=== PATIENT | male | born 1985 | race African-American/Black ===

== ENCOUNTER 2024-03-29 14:36 | Inpatient (IN) ==
[2024-03-29] MEDS: DECADRON TAB PO ONE (15:07)
[2024-03-29] MEDS: ZOFRAN TAB 4 MG PO ONE (15:08)
--- NOTE | 2024-03-29 15:15 | DR.ABDMALE ---
HPI Time seen Time Seen by Provider: 03/29/24 15:13 PCP Primary Care Physician: Dr. Katherine Dalton HPI comment HPI Comment: Patient was complaining of abdominal pain with a history of Crohn's. Patient states he feels like he has got a flareup Patient has had some nausea. This started last night. Denies any fever Complaint Chief Complaint:: pt states that he is having a crohns flare-up with N/V and abdominal pain that started last night Self Treatment fo Chief Complaint: phenergan- last dose today 0700 Mode of arrival Mode of Arrival: Ambulatory Timing Onset of Chief Complaint: 03/28/24 PMH PMH Past Medical History: Yes Past Medical History: Migraines Past Medical History Comment: Crohn's disease Past Surgical History: Yes Surgical History: Bowel Resection Family History History of Family Medical Conditions: Yes Family Medical History: Diabetes Mellitus and Hypertension Family Medical History Comment: crohn's disease Social History Does patient currently use any type of tobacco product: No Have you used tobacco products in the last 12 months: No Type of Tobacco Use: None Does any household member use tobacco: No Alcohol Use: None Do you use any recreational Drugs:: No Lives With: Family Lives Where: Home Infectious screening Have you traveled outside the country in the last 6 months?: No Isolation: Standard ROS Review of Systems Constitutional: No Symptoms Reported Eyes: No Symptoms Reported ENTM: No Symptoms Reported Respiratoy: No Symptoms Reported Cardiovascular: No Symptoms Reported Gastrointestinal/Abdominal: See HPI, Abdominal Pain, Nausea and Vomiting; negative Constipation or Diarrhea Genitourinary: No Symptoms Reported Neurological: No Symptoms Reported Musculoskeletal: No Symptoms Reported Integumentary: No Symptoms Reported Hematologic/Lymphatic: No Symptoms Reported Endocrine: No Symptoms Reported Psychiatric: No Symptoms Reported All Other Systems: Reviewed and Negative PE Vital Signs Vital Signs: Temp Pulse Resp BP Pulse Ox O2 Del Method 03/29/24 17:00 20 03/29/24 14:54 98.0 F 110 H 20 145/97 97 Room Air General Limitations: No Limitations General Appearance: Alert and In No Apparent Distress Head Head Exam: Normal Inspection Eyes Eye exam: Normal Appearance ENT ENT Exam: Normal Exam Neck Neck Exam: Normal Inspection Chest Chest Inspection: Normal Inspection Respiratory Respiratory Exam: Normal Lung Sounds Bilat Cardiovascular Cardiovascular Exam: Regular Rate and Normal Rhythm Abdominal Exam Abdominal Exam: Normal Bowel Sounds, Soft and Tenderness; negative Distention, Guarding, Rebound or Rigidity Rectal Rectal Exam: Deferred Back Back Exam: Normal Inspection Extremeties Extremities Exam: Normal Inspection Exam: Male: Deferred Neurologic Neurological Exam: Alert and Oriented X3 Psychiatric Psychiatric Exam: Normal Affect and Normal Mood Skin Skin Exam: Warm, Dry, Intact and Normal Color COURSE Consultation Called: 18:12 Consultation Comments: Discussed case with Dr. Lubin. Since patient has small bowel obstruction we will admit patient. Patient has NG tube in place and will continue hydration and pain control. Discussed doing a trial with days and if not improved by the morning there will be a consult for surgery done by Dr. Lubin. ROR Labs Reviewed 03/29/24 15:25 03/29/24 15:25 Laboratory: WBC 17.3 X10^3/uL (3.6-10.0) H 03/29/24 15:25 RBC 6.04 X10^6/uL (4.7-6.0) H 03/29/24 15:25 Hgb 14.7 g/dL (13.5-18.0) 03/29/24 15:25 Hct 45.8 % (42.0-54.0) 03/29/24 15:25 MCV 75.8 fL (80.0-100.0) L 03/29/24 15:25 MCH 24.3 pg (27.0-34.0) L 03/29/24 15:25 MCHC 32.0 g/dL (33.0-35.0) L 03/29/24 15:25 RDW 16.5 % (11.6-16.5) 03/29/24 15:25 Plt Count 244 X10^3/uL (150.0-450.0) 03/29/24 15:25 MPV 9.2 fL (7.4-11.0) 03/29/24 15:25 Neut % (Auto) 86.0 % (42.0-75.0) H 03/29/24 15:25 Lymph % (Auto) 4.9 % (21.0-51.0) L 03/29/24 15:25 [place] % (Auto) 8.7 % (0.0-13.0) 03/29/24 15:25 Eos % (Auto) 0.2 % (0.9-2.9) L 03/29/24 15:25 Baso % (Auto) 0.2 % (0.2-1.0) 03/29/24 15:25 Neut # (Auto) 14.9 x10^3/uL (2.2-4.8) H 03/29/24 15:25 Lymph # (Auto) 0.9 X10^3/uL (1.3-2.9) L 03/29/24 15:25 [place] # (Auto) 1.5 x10^3/uL (0.3-0.8) H 03/29/24 15:25 Eos # (Auto) 0.0 x10^3/uL (0.0-0.2) 03/29/24 15:25 Baso # (Auto) 0.0 X10^3/uL (0.0-0.1) 03/29/24 15:25 Absolute Nucleated RBC 0.1 /100WBC 03/29/24 15:25 Sodium 141 mmol/L (136-145) 03/29/24 15:25 Corrected Sodium TNP 03/29/24 15:25 Potassium 3.8 mmol/L (3.5-5.1) 03/29/24 15:25 Chloride 102 mmol/L (98-107) 03/29/24 15:25 Carbon Dioxide 32.8 mmol/L (21-32) H 03/29/24 15:25 BUN 6 mg/dL (7-18) L 03/29/24 15:25 Creatinine 1.16 mg/dL (0.70-1.30) 03/29/24 15:25 Est GFR (MDRD) Af Amer > 60 (>60) 03/29/24 15:25 Est GFR (MDRD) Non-Af > 60 (>60) 03/29/24 15:25 Glucose 108 mg/dL (65-99) H 03/29/24 15:25 Calcium 9.3 mg/dL (8.5-10.1) 03/29/24 15:25 Corrected Calcium TNP 03/29/24 15:25 Total Bilirubin 0.50 mg/dL (0.2-1.0) 03/29/24 15:25 AST 14 Units/L (15-37) L 03/29/24 15:25 ALT 24 Units/L (12-78) 03/29/24 15:25 Alkaline Phosphatase 96 Units/L (46-116) 03/29/24 15:25 Total Protein 8.2 g/dL (6.4-8.2) 03/29/24 15:25 Albumin 4.1 g/dL (3.4-5.0) 03/29/24 15:25 Globulin 4.1 g/dL (2.5-4.5) 03/29/24 15:25 Albumin/Globulin Ratio 1.0 Ratio (1.1-2.1) L 03/29/24 15:25 Amylase 124 Units/L (25-115) H 03/29/24 15:25 Lipase 13 Units/L (16-77) L 03/29/24 15:25 Opioid Opioid Risk Tool Age (Sam box if 16-45): Yes History of Preadolescent Sexual Abuse: No Total: 1 Total Score Risk Category: Low Risk Copyright: [facility] predicting aberrant behaviors Discharge Plan Diagnosis Discharge Problem: SBO (small bowel obstruction), Exacerbation of Crohn's disease of small intestine Discharge Plan Patient Disposition: 09 ADMITTED INPATIENT Condition: Stable Prescriptions: No Action [facility] Concerns: Post Hospitalization: new medications and changes needed to prevent readmission or further decline. Pt educated and given instructions on all concerns. Plan of Treatment: Continue with present treatment and follow up plan. Pt is to keep follow up appointment as instructed and take medications as ordered. Orders to Discharge Patient Discharge Orders: Transfer (Routine); Ordered 03/29/24 Ordered By: Kennedy Stevenson Follow ups/Referrals Follow ups/Referrals: SHALONDA SAM [Primary Care Provider] - 3 days Instructions Stand Alone Forms: Find Help Web Site, Post Hospital Follow Up Care
[2024-03-29 15:33] LABS: BASOPHILS % (AUTO) 0.2 % (0.2-1.0); EOSINOPHILS % (AUTO) 0.2 % (0.9-2.9); HEMATOCRIT 45.8 % (42.0-54.0); HEMOGLOBIN 14.7 g/dL (13.5-18.0); LYMPHOCYTES # (AUTO) 0.9 X10^3/uL (1.3-2.9); LYMPHOCYTES % (AUTO) 4.9 % (21.0-51.0); MEAN CORPUSCULAR HEMOGLOBIN 24.3 pg (27.0-34.0); MEAN CORPUSCULAR VOLUME 75.8 fL (80.0-100.0); MEAN PLATELET VOLUME 9.2 fL (7.4-11.0); MONOCYTES # (AUTO) 1.5 x10^3/uL (0.3-0.8); MONOCYTES % (AUTO) 8.7 % (0.0-13.0); NEUTROPHILS # (AUTO) 14.9 x10^3/uL (2.2-4.8); PLATELET COUNT 244 X10^3/uL (150.0-450.0); RED BLOOD COUNT 6.04 X10^6/uL (4.7-6.0); RED CELL DISTRIBUTION WIDTH 16.5 % (11.6-16.5); WHITE BLOOD COUNT 17.3 X10^3/uL (3.6-10.0)
[2024-03-29 15:44] LABS: ALANINE AMINOTRANSFERASE 24 Units/L (12-78); ALBUMIN 4.1 g/dL (3.4-5.0); ALKALINE PHOSPHATASE 96 Units/L (46-116); AMYLASE 124 Units/L (25-115); ASPARTATE AMINO TRANSFERASE 14 Units/L (15-37); BLOOD UREA NITROGEN 6 mg/dL (7-18); CALCIUM 9.3 mg/dL (8.5-10.1); CARBON DIOXIDE 32.8 mmol/L (21-32); CHLORIDE 102 mmol/L (98-107); CREATININE 1.16 mg/dL (0.70-1.30); GLUCOSE 108 mg/dL (65-99); LIPASE 13 Units/L (16-77); POTASSIUM 3.8 mmol/L (3.5-5.1); SODIUM 141 mmol/L (136-145); TOTAL PROTEIN 8.2 g/dL (6.4-8.2); eGFR NON BLACK RACES > 60 (>60)
--- NOTE | 2024-03-29 16:51 | CT ---
EXAM:ABDOMEN/PELVIS W/O CONHISTORY:abd pain, crohn;COMPARISON:01/28/2024TECHNIQUE:Non enhanced spiral CT imaging was performed through the abdomen and axial, coronal, and sagittal CT images were generated.FINDINGS:The lung bases are clear without effusion. The heart size is normal. The liver, gallbladder, pancreas, spleen, adrenal glands are normal. The kidneys are normal in size without mass, stone, or hydronephrosis. The urinary bladder wall is normal. Prostate measures 4.2 cm in diameter. The stomach is filled with fluid. Small bowel loops are dilated and fluid-filled with diameters measuring up to 4.9 cm in diameter. Point of obstruction appears to be an area of scarring in the mesenteric fat in the right lower quadrant where 3 different points of the small bowel retracted into 1 point of central soft tissue scarring. There may be a fistula developing. The terminal ileum distal to this point is collapsed and there appears to be a soft tissue stenosis causing the obstruction. The cecum is also showing evidence of scarring. There is some induration of the fat large bowel is relatively collapsed. Bones are unremarkable.IMPRESSION:Small-bowel obstruction due to right lower quadrant scarring and retraction and ileal scarring/stenosis.THIS IS AN ELECTRONICALLY VERIFIED FINAL [id number]/29/2024 4:48 PM - Electronically signed by Estuardo Day MD
[2024-03-29] MEDS: MORPHINE SULFATE INJ 2 MG INJ IVP ONE (17:00)
[2024-03-29] MEDS: NS 1,000 ML IV 1,000 ML IV ONE (17:00)
[2024-03-29] MEDS: ZOSYN VIAL 3.375 GRAMS 3.375 G in NS 100 ML IV 100 ML IV ONE (19:03)
[2024-03-29 19:58] VITALS: BMI 22.1
[2024-03-29] MEDS: ZOFRAN ODT ONE (20:03)
[2024-03-29] MEDS: DECADRON TAB ONE (20:03)
[2024-03-29] MEDS: NS 1,000 ML IV 1,000 ML IV SCH (20:08)
[2024-03-29] MEDS: ZOFRAN INJ 4 MG VIAL IVP PRN (20:08)
[2024-03-29] MEDS: MORPHINE SULFATE INJ 2 MG INJ IVP PRN (20:09)
[2024-03-30 04:20] LABS: BILIRUBIN,URINE NEGATIVE (NEGATIVE); BLOOD/HEMOGLOBIN,URINE NEGATIVE (NEGATIVE); GLUCOSE, URINE NEGATIVE (NEGATIVE); KETONES,URINE NEGATIVE (NEGATIVE); LEUKOCYTE ESTERASE ,URINE NEGATIVE (NEGATIVE); NITRITES,URINE NEGATIVE (NEGATIVE); PROTEIN,URINE 1+ (NEGATIVE); UROBILINOGEN,URINE NORMAL (NORMAL)
[2024-03-30 04:25] LABS: APPEARANCE,URINE CLEAR (CLEAR); BACTERIA,URINE NEGATIVE /HPF (NEGATIVE); COLOR,URINE YELLOW (YELLOW); RBC,URINE NONE SEEN /HPF (0-3); SQUAMOUS EPITHELIAL CELL,UR RARE /HPF (NEGATIVE)
[2024-03-30 06:02] LABS: BASOPHILS % (AUTO) 0.1 % (0.2-1.0); HEMATOCRIT 37.8 % (42.0-54.0); LYMPHOCYTES # (AUTO) 0.8 X10^3/uL (1.3-2.9); LYMPHOCYTES % (AUTO) 8.5 % (21.0-51.0); MEAN CORPUSCULAR HEMOGLOBIN 24.4 pg (27.0-34.0); MEAN CORPUSCULAR HGB CONC 32.4 g/dL (33.0-35.0); MEAN CORPUSCULAR VOLUME 75.5 fL (80.0-100.0); MEAN PLATELET VOLUME 9.6 fL (7.4-11.0); MONOCYTES # (AUTO) 0.9 x10^3/uL (0.3-0.8); MONOCYTES % (AUTO) 10.1 % (0.0-13.0); NEUTROPHILS # (AUTO) 7.5 x10^3/uL (2.2-4.8); NEUTROPHILS % (AUTO) 81.3 % (42.0-75.0); PLATELET COUNT 212 X10^3/uL (150.0-450.0); RED CELL DISTRIBUTION WIDTH 16.4 % (11.6-16.5)
[2024-03-30 06:08] LABS: WHITE BLOOD COUNT 9.3 X10^3/uL (3.6-10.0)
[2024-03-30 06:09] LABS: HEMOGLOBIN 12.2 g/dL (13.5-18.0)
[2024-03-30 06:18] LABS: ALANINE AMINOTRANSFERASE 17 Units/L (12-78); ALBUMIN 3.1 g/dL (3.4-5.0); ALKALINE PHOSPHATASE 71 Units/L (46-116); ASPARTATE AMINO TRANSFERASE 11 Units/L (15-37); BLOOD UREA NITROGEN 7 mg/dL (7-18); CALCIUM 8.4 mg/dL (8.5-10.1); CARBON DIOXIDE 26.8 mmol/L (21-32); CHLORIDE 106 mmol/L (98-107); COR CA(FOR HYPOALB) 9.1 mg/dL (8.5-10.1); GLUCOSE 104 mg/dL (65-99); MAGNESIUM 1.8 mg/dL (2.0-2.9); POTASSIUM 3.8 mmol/L (3.5-5.1); SODIUM 142 mmol/L (136-145); TOTAL PROTEIN 6.5 g/dL (6.4-8.2); eGFR NON BLACK RACES > 60 (>60)
[2024-03-30] MEDS ORDERED: CONSULT PHARMACY - POTASSIUM & MAGNESIUM XX SCH (07:00)
[2024-03-30] MEDS: MAGNESIUM SULFATE 1 GRAM/100 mL PREMIX 1 G/100 ML BAG IV SCH (08:11)
--- NOTE | 2024-03-30 08:52 | RAD ---
EXAM: Portable abdomen series three views HISTORY: SBO Crohn's surgery COMPARISON: 03/29/2024 FINDINGS: AP chest: No acute findings. Abdomen: Supine/upright views demonstrate intestinal distention, primarily small bowel. There is no free air, mass, fluid collection or calcification noted. The NG tube terminates in the proximal stom ach just distal to the GE junction. IMPRESSION: Appearance of the intestinal gas pattern is consistent with some degree of small-bowel obstruction, as suggested on recent CT abdomen. THIS IS AN ELECTRONICALLY VERIFIED FINAL REPORT 03/30/2024 8:49 AM - Electronically signed by Kash Jha MD
[2024-03-30] MEDS: K-RIDER 10 MEQ/100 ML WATER 10 MEQ/100 ML BAG IV SCH (10:18)
--- NOTE | 2024-03-30 10:36 | DR.H&P ---
H&P History & Physical for Day of: H&P Date: 03/30/24 Chief Complaint Chief Complaint: "I just had a flare-up of my Crohn's disease yesterday." History of Present Illness History of Present Illness: Matti Barcenas is a pleasant 39-year-old white male with a history of Crohn's disease who presented to the ER due to a flare-up that began yesterday. He reported severe stomach pain all over the abdomen and experienced nausea with one episode of vomiting. He denied having a fever, diarrhea, or blood in his stool. He takes Imuran for Crohn's disease and has a history of migraines. He was treated with Zosyn and IV fluid in the ER. His symptoms have slightly improved today, but he still experiences abdominal pain, particularly in the right lower quadrant. He does see a specialist for this, acoustical carpenter Dr. Delong in [place], [place]. The patient was found to have a small bowel obstruction last night in the [facility] emergency department a CT scan of his abdomen and pelvis. Scar tissue was seen in his right lower quadrant, which is an area where he had a previous bowel resection several years ago. The patient currently has an NG tube in place, which was put in last night in the emergency department. Past Medical History Past Medical History: Migraines Past Surgical History Surgical History: Bowel Resection Additional Surgical History: hx of small bowel obstruction due to Crohn's dis ease in the past requiring small bowel resection Family History Family Medical History: Diabetes Mellitus and Hypertension Social History Does patient currently use any type of tobacco product: No Have you used tobacco products in the last 12 months: No Type of Tobacco Use: None Does any household member use tobacco: No Alcohol Use: None Drug Use: None Medications Home Medications: Home Medications Medication Instructions Recorded Confirmed Type NK 03/29/24 03/29/24 History Allergies Allergies Allergy/AdvReac Type Severity Reaction Status Date / Time ketorolac [From Toradol] Allergy Verified 03/29/24 15:46 Labs 03/30/24 05:25 03/30/24 05:25 Labs: Laboratory WBC 9.3 X10^3/uL (3.6-10.0) D 03/30/24 05:25 RBC 5.00 X10^6/uL (4.7-6.0) 03/30/24 05:25 Hgb 12.2 g/dL (13.5-18.0) L D 03/30/24 05:25 Hct 37.8 % (42.0-54.0) L 03/30/24 05:25 MCV 75.5 fL (80.0-100.0) L 03/30/24 05:25 MCH 24.4 pg (27.0-34.0) L 03/30/24 05:25 MCHC 32.4 g/dL (33.0-35.0) L 03/30/24 05:25 RDW 16.4 % (11.6-16.5) 03/30/24 05:25 Plt Count 212 X10^3/uL (150.0-450.0) 03/30/24 05:25 MPV 9.6 fL (7.4-11.0) 03/30/24 05:25 Neut % (Auto) 81.3 % (42.0-75.0) H 03/30/24 05:25 Lymph % (Auto) 8.5 % (21.0-51.0) L 03/30/24 05:25 [place] % (Auto) 10.1 % (0.0-13.0) 03/30/24 05:25 Eos % (Auto) 0.0 % (0.9-2.9) L 03/30/24 05:25 Baso % (Auto) 0.1 % (0.2-1.0) L 03/30/24 05:25 Neut # (Auto) 7.5 x10^3/uL (2.2-4.8) H 03/30/24 05:25 Lymph # (Auto) 0.8 X10^3/uL (1.3-2.9) L 03/30/24 05:25 [place] # (Auto) 0.9 x10^3/uL (0.3-0.8) H 03/30/24 05:25 Eos # (Auto) 0.0 x10^3/uL (0.0-0.2) 03/30/24 05:25 Baso # (Auto) 0.0 X10^3/uL (0.0-0.1) 03/30/24 05:25 Absolute Nucleated RBC 0.0 /100WBC 03/30/24 05:25 Sodium 142 mmol/L (136-145) 03/30/24 05:25 Corrected Sodium TNP 03/30/24 05:25 Potassium 3.8 mmol/L (3.5-5.1) 03/30/24 05:25 Chloride 106 mmol/L (98-107) 03/30/24 05:25 Carbon Dioxide 26.8 mmol/L (21-32) 03/30/24 05:25 BUN 7 mg/dL (7-18) 03/30/24 05:25 Creatinine 1.00 mg/dL (0.70-1.30) 03/30/24 05:25 Est GFR (MDRD) Af Amer > 60 (>60) 03/30/24 05:25 Est GFR (MDRD) Non-Af > 60 (>60) 03/30/24 05:25 Glucose 104 mg/dL (65-99) H 03/30/24 05:25 Calcium 8.4 mg/dL (8.5-10.1) L 03/30/24 05:25 Corrected Calcium 9.1 mg/dL (8.5-10.1) 03/30/24 05:25 Magnesium 1.8 mg/dL (2.0-2.9) L 03/30/24 05:25 Total Bilirubin 0.50 mg/dL (0.2-1.0) 03/30/24 05:25 AST 11 Units/L (15-37) L 03/30/24 05:25 ALT 17 Units/L (12-78) 03/30/24 05:25 Alkaline Phosphatase 71 Units/L (46-116) 03/30/24 05:25 Total Protein 6.5 g/dL (6.4-8.2) 03/30/24 05:25 Albumin 3.1 g/dL (3.4-5.0) L 03/30/24 05:25 Globulin 3.4 g/dL (2.5-4.5) 03/30/24 05:25 Albumin/Globulin Ratio 0.9 Ratio (1.1-2.1) L 03/30/24 05:25 Amylase 124 Units/L (25-115) H 03/29/24 15:25 Lipase 13 Units/L (16-77) L 03/29/24 15:25 Specimen Type Clean catch urine 03/30/24 04:05 Urine Color Yellow (YELLOW) 03/30/24 04:05 Urine Appearance Clear (CLEAR) 03/30/24 04:05 Urine pH 7.0 (5.0 - 8.0) 03/30/24 04:05 Ur Specific [place] 1.005 (1.000-1.030) 03/30/24 04:05 Urine Protein 1+ (NEGATIVE) 03/30/24 04:05 Urine Glucose (UA) Negative (NEGATIVE) 03/30/24 04:05 Urine Ketones Negative (NEGATIVE) 03/30/24 04:05 Urine Blood Negative (NEGATIVE) 03/30/24 04:05 Urine Nitrite Negative (NEGATIVE) 03/30/24 04:05 Urine Bilirubin Negative (NEGATIVE) 03/30/24 04:05 Urine Urobilinogen Normal (NORMAL) 03/30/24 04:05 Ur Leukocyte Esterase Negative (NEGATIVE) 03/30/24 04:05 Urine RBC None seen /HPF (0-3) 03/30/24 04:05 Urine WBC None seen /HPF (0-5) 03/30/24 04:05 Ur Squamous Epith Cells Rare /HPF (NEGATIVE) 03/30/24 04:05 Urine Bacteria Negative /HPF (NEGATIVE) 03/30/24 04:05 Ur Culture Indicated? No/not indicated 03/30/24 04:05 Review of Systems Constitutional: No Symptoms Reported and Weakness; denies Fever, Chills, Sweats or Malaise Eyes: No Symptoms Reported ENT: No Symptoms Reported Respiratory: No Symptoms Reported Cardiovascular: No Symptoms Reported Gastrointestinal: Nausea, Vomiting and Abdominal Pain; denies Diarrhea, Constipation, Melena or Hematochezia Genitourinary: No Symptoms Reported Musculoskeletal: No Symptoms Reported Skin: No Symptoms Reported Neurological: No Symptoms Reported Physical Exam Vital Signs: Vital Signs Temperature 97.8 F Temperature 97.7 F Pulse Rate [Brachial] 90 Pulse Rate [Brachial] 117 Respiratory Rate 18 Respiratory Rate 18 Respiratory Rate 18 Respiratory Rate 20 Respiratory Rate 20 Respiratory Rate 21 Blood Pressure [Right Arm] 125/82 Blood Pressure [Right Arm] 126/77 O2 Sat by Pulse Oximetry 98 O2 Sat by Pulse Oximetry 96 Oriented: Normal, Time, Person and Place Eyes: Normal Ear: Normal Nose: Normal Throat: Normal Respiratory: Clear Throughout Cardiovascular: Normal Auscultation: Bowel Sounds: Decreased; negative Absent or High Pitched Palpation: Normal Tenderness: RLQ, Mild and Moderate; negative Epigastric, Rebound, Guarding or Rigidity Skin: Normal Musculoskeletal: Normal Psychiatric: Normal Mood Description: Calm Affect: Normal Speech Pattern: Clear and Appropriate Assessment/Plan (1) Exacerbation of Crohn's disease of small intestine: Status: Acute Plan: 1. Continue IV hydration 2. Continue IV Zosyn 3. The patient did receive a one-time dose of Decadron 8 mg p.o. x 1 yesterday in the emergency department. (2) SBO (small bowel obstruction): Status: Acute Plan: 1. Consult general surgeon, Dr. Miles for evaluation of the patient's small bowel obstruction. 2. Continue nasogastric tube at this time. 3. Check KUB this morning and repeat again tomorrow morning. (3) Abdominal pain: Qualifiers: Abdominal location: generalized Qualified Code(s): R10.84 - Generalized abdominal pain Status: Acute Plan: Continue pain control with as needed morphine sulfate IV. Review H&P Reviewed: Yes Patient was examined?: Yes
[2024-03-30] MEDS ORDERED: TORADOL 30 MG VIAL IVP PRN (11:55)
[2024-03-30] MEDS: CIPRO IV 400 MG PREMIX* 400 MG/200 ML IV.SOLN. IV SCH (12:28)
[2024-03-30] MEDS: SOLU-Medrol 40 MG VIAL IVP SCH (12:31)
[2024-03-30] MEDS: PROTONIX INJ 40 MG VIAL IVP SCH (12:31)
[2024-03-30] MEDS: DILAUDID INJ IVP PRN (12:40)
[2024-03-30] MEDS ORDERED: NS 250 ML IV 25 ML IV PRN (14:38)
[2024-03-30] MEDS: ZOSYN VIAL 4.5 GRAMS 4.5 G in NS 100 ML IV 100 ML IV SCH (15:03)
[2024-03-30] MEDS: NS 250 ML IV 25 ML IV PRN (22:30)
[2024-03-31 05:25] LABS: BASOPHILS % (AUTO) 0.1 % (0.2-1.0); HEMATOCRIT 36.2 % (42.0-54.0); HEMOGLOBIN 11.6 g/dL (13.5-18.0); LYMPHOCYTES # (AUTO) 0.6 X10^3/uL (1.3-2.9); MEAN CORPUSCULAR HEMOGLOBIN 24.3 pg (27.0-34.0); MEAN CORPUSCULAR VOLUME 75.9 fL (80.0-100.0); MEAN PLATELET VOLUME 9.9 fL (7.4-11.0); MONOCYTES # (AUTO) 0.3 x10^3/uL (0.3-0.8); MONOCYTES % (AUTO) 3.9 % (0.0-13.0); NEUTROPHILS # (AUTO) 7.3 x10^3/uL (2.2-4.8); PLATELET COUNT 220 X10^3/uL (150.0-450.0); RED BLOOD COUNT 4.78 X10^6/uL (4.7-6.0); RED CELL DISTRIBUTION WIDTH 16.5 % (11.6-16.5); WHITE BLOOD COUNT 8.2 X10^3/uL (3.6-10.0)
[2024-03-31 05:41] LABS: ALANINE AMINOTRANSFERASE 16 Units/L (12-78); ALBUMIN 3.3 g/dL (3.4-5.0); ALKALINE PHOSPHATASE 64 Units/L (46-116); ASPARTATE AMINO TRANSFERASE 14 Units/L (15-37); BLOOD UREA NITROGEN 10 mg/dL (7-18); CALCIUM 8.7 mg/dL (8.5-10.1); CARBON DIOXIDE 27.5 mmol/L (21-32); CHLORIDE 103 mmol/L (98-107); COR CA(FOR HYPOALB) 9.3 mg/dL (8.5-10.1); GLUCOSE 103 mg/dL (65-99); MAGNESIUM 2.3 mg/dL (2.0-2.9); SODIUM 141 mmol/L (136-145); eGFR NON BLACK RACES > 60 (>60)
--- NOTE | 2024-03-31 09:26 | RAD ---
EXAM:KUB x-ray one viewHISTORY:SBO W/NG TUBE -COMPARISON:X-ray 03/30/2024FINDINGS:Nasogastric tube has been retracted into the esophagus. Side hole of the tube is not included on the study. Tube should be advanced approximately 13 cm.Dilated air-filled bowel loops are seen in the mid abdomen that are similar to prior study. Mild retained fecal material is seen in the colon.IMPRESSION:Nasogastric tube has been retracted into the esophagus. It should be advanced approximately 13 cm.THIS IS AN ELECTRONICALLY VERIFIED FINAL [id number]/31/2024 9:23 AM - Electronically signed by Timothy Gomez MD
--- NOTE | 2024-03-31 09:35 | PCM.PROG ---
Progress Note Progress Note for Day of Date of Exam: 03/31/24 Subjective Subjective: Patient seen at bedside, no acute events overnight. He still has abdominal pain, NGT in place. He is currently admitted for Crohn's flare up and SBO. Dr Cleveland is also following. He is on IV antibiotics, steroids and fluids. Labs/imaging reviewed: - WBC 8.2 Hgb 11.6 Gluceose 103 -KUB 03/30/24: SBO changes similar to CTAP Plan: follow surgery recommendations. Follow KUB. Continue NGT, monitor output. Continue IV fluids, antibiotics and steroids. Replace electrolytes prn. NPO status. Continue pain control prn. Continue protonix, zofran prn. Monitor AM labs/imaging. Past Medical Family Social History Allergies: Allergies ketorolac [From Toradol] Allergy (Verified 03/29/24 15:46) Vital Signs and I&O's Vital Signs: Vital Signs Temperature 97.4 F Temperature 97.9 F Pulse Rate [Brachial] 85 Pulse Rate [Brachial] 82 Respiratory Rate 18 Respiratory Rate 18 Respiratory Rate 16 Respiratory Rate 16 Respiratory Rate 18 Respiratory Rate 16 Blood Pressure [Right Arm] 126/80 Blood Pressure [Right Arm] 131/85 O2 Sat by Pulse Oximetry 98 O2 Sat by Pulse Oximetry 96 Intake and Output: Intake & Output 03/28/24 03/29/24 03/30/24 03/31/24 23:59 23:59 23:59 23:59 Intake Total 370 / 370 3088 / 3088 753 / 753 Output Total 2125 / 2125 275 / 275 Balance 370 / 370 963 / 963 478 / 478 Physical Exam Oriented: Normal, Time, Person and Place Eyes: Normal Ear: Normal Nose: Normal Throat: Normal Respiratory: Normal Cardiovascular: Normal Auscultation: Bowel Sounds: Decreased Tenderness: RLQ, Mild and Moderate; negative Epigastric, Rebound, Guarding or Rigidity Skin: Normal Musculoskeletal: Normal Psychiatric: Normal Mood Description: Calm Affect: Normal Speech Pattern: Clear and Appropriate Laboratory and Diagnostics 03/31/24 04:17 03/31/24 04:17 Labs: Laboratory WBC 8.2 X10^3/uL (3.6-10.0) 03/31/24 04:17 RBC 4.78 X10^6/uL (4.7-6.0) 03/31/24 04:17 Hgb 11.6 g/dL (13.5-18.0) L 03/31/24 04:17 Hct 36.2 % (42.0-54.0) L 03/31/24 04:17 MCV 75.9 fL (80.0-100.0) L 03/31/24 04:17 MCH 24.3 pg (27.0-34.0) L 03/31/24 04:17 MCHC 32.0 g/dL (33.0-35.0) L 03/31/24 04:17 RDW 16.5 % (11.6-16.5) 03/31/24 04:17 Plt Count 220 X10^3/uL (150.0-450.0) 03/31/24 04:17 MPV 9.9 fL (7.4-11.0) 03/31/24 04:17 Neut % (Auto) 89.0 % (42.0-75.0) H 03/31/24 04:17 Lymph % (Auto) 7.0 % (21.0-51.0) L 03/31/24 04:17 [place] % (Auto) 3.9 % (0.0-13.0) 03/31/24 04:17 Eos % (Auto) 0.0 % (0.9-2.9) L 03/31/24 04:17 Baso % (Auto) 0.1 % (0.2-1.0) L 03/31/24 04:17 Neut # (Auto) 7.3 x10^3/uL (2.2-4.8) H 03/31/24 04:17 Lymph # (Auto) 0.6 X10^3/uL (1.3-2.9) L 03/31/24 04:17 [place] # (Auto) 0.3 x10^3/uL (0.3-0.8) 03/31/24 04:17 Eos # (Auto) 0.0 x10^3/uL (0.0-0.2) 03/31/24 04:17 Baso # (Auto) 0.0 X10^3/uL (0.0-0.1) 03/31/24 04:17 Absolute Nucleated RBC 0.0 /100WBC 03/31/24 04:17 ESR 26 MM/HOUR (0-15) H 03/30/24 12:18 Sodium 141 mmol/L (136-145) 03/31/24 04:17 Corrected Sodium TNP 03/31/24 04:17 Potassium 4.0 mmol/L (3.5-5.1) 03/31/24 04:17 Chloride 103 mmol/L (98-107) 03/31/24 04:17 Carbon Dioxide 27.5 mmol/L (21-32) 03/31/24 04:17 BUN 10 mg/dL (7-18) 03/31/24 04:17 Creatinine 1.10 mg/dL (0.70-1.30) 03/31/24 04:17 Est GFR (MDRD) Af Amer > 60 (>60) 03/31/24 04:17 Est GFR (MDRD) Non-Af > 60 (>60) 03/31/24 04:17 Glucose 103 mg/dL (65-99) H 03/31/24 04:17 Calcium 8.7 mg/dL (8.5-10.1) 03/31/24 04:17 Corrected Calcium 9.3 mg/dL (8.5-10.1) 03/31/24 04:17 Magnesium 2.3 mg/dL (2.0-2.9) 03/31/24 04:17 Total Bilirubin 0.40 mg/dL (0.2-1.0) 03/31/24 04:17 AST 14 Units/L (15-37) L 03/31/24 04:17 ALT 16 Units/L (12-78) 03/31/24 04:17 Alkaline Phosphatase 64 Units/L (46-116) 03/31/24 04:17 Total Protein 7.0 g/dL (6.4-8.2) 03/31/24 04:17 Albumin 3.3 g/dL (3.4-5.0) L 03/31/24 04:17 Globulin 3.7 g/dL (2.5-4.5) 03/31/24 04:17 Albumin/Globulin Ratio 0.9 Ratio (1.1-2.1) L 03/31/24 04:17 Amylase 124 Units/L (25-115) H 03/29/24 15:25 Lipase 13 Units/L (16-77) L 03/29/24 15:25 Specimen Type Clean catch urine 03/30/24 04:05 Urine Color Yellow (YELLOW) 03/30/24 04:05 Urine Appearance Clear (CLEAR) 03/30/24 04:05 Urine pH 7.0 (5.0 - 8.0) 03/30/24 04:05 Ur Specific [place] 1.005 (1.000-1.030) 03/30/24 04:05 Urine Protein 1+ (NEGATIVE) 03/30/24 04:05 Urine Glucose (UA) Negative (NEGATIVE) 03/30/24 04:05 Urine Ketones Negative (NEGATIVE) 03/30/24 04:05 Urine Blood Negative (NEGATIVE) 03/30/24 04:05 Urine Nitrite Negative (NEGATIVE) 03/30/24 04:05 Urine Bilirubin Negative (NEGATIVE) 03/30/24 04:05 Urine Urobilinogen Normal (NORMAL) 03/30/24 04:05 Ur Leukocyte Esterase Negative (NEGATIVE) 03/30/24 04:05 Urine RBC None seen /HPF (0-3) 03/30/24 04:05 Urine WBC None seen /HPF (0-5) 03/30/24 04:05 Ur Squamous Epith Cells Rare /HPF (NEGATIVE) 03/30/24 04:05 Urine Bacteria Negative /HPF (NEGATIVE) 03/30/24 04:05 Ur Culture Indicated? No/not indicated 03/30/24 04:05 Plan (1) Exacerbation of Crohn's disease of small intestine: Status: Acute Plan: 1. Continue IV hydration 2. Continue IV Zosyn 3. Continue soluemdrol (2) SBO (small bowel obstruction): Status: Acute Plan: 1. Dr Cleveland following 2. Continue nasogastric tube at this time. 3. Follow KUB results (3) Abdominal pain: Status: Acute Qualifiers: Abdominal location: generalized Qualified Code(s): R10.84 - Generalized abdominal pain Plan: Continue pain control with as needed morphine sulfate IV.
--- NOTE | 2024-03-31 10:06 | RAD ---
EXAM:KUBHISTORY:NGT ADVANCEMENT;COMPARISON:03/31/2024 at 0431 hoursTECHNIQUE:One viewFINDINGS:Nasogastric tube tip is in the body of the stomach. Nonobstructive bowel gas pattern. No free air or air-fluid levels. No abnormal calcifications in the distribution of the kidneys or ureters. Moderate stool in the colon.IMPRESSION:Nasogastric tube tip in the body of the stomach.THIS IS AN ELECTRONICALLY VERIFIED FINAL [id number]/31/2024 10:03 AM - Electronically signed by Timothy Baird MD
--- NOTE | 2024-03-31 11:52 | DR.PROGNOT ---
HOSPITAL PROGRESS NOTE Progress Note for Day of: Progress Note Date: 03/31/24 Chief Complaint Chief Complaint: Still complaining of abdominal pain more towards the right side and right lower quadrant. Repeated KUB showed same dilated small bowel loops. No free air. White count and electrolytes are normal, normal liver function test and renal function. Patient is afebrile Abdomen is full with mild to moderate tenderness more towards the right side of the abdomen, bowel sounds are present.. Past Medical Family Social History Past Med/Fam/Surg Hx: No changes since H&P Allergies: Allergies ketorolac [From Toradol] Allergy (Verified 03/29/24 15:46) Vital Signs Vital Signs: Vital Signs Temperature 97.4 F Pulse Rate [Brachial] 85 Respiratory Rate 18 Respiratory Rate 18 Respiratory Rate 16 Blood Pressure [Right Arm] 126/80 O2 Sat by Pulse Oximetry 98 Physical Exam Oriented: Normal, Time, Person and Place Eyes: Normal Ear: Normal Nose: Normal Throat: Normal Respiratory: Normal Cardiovascular: Normal GI:Auscultation: Decreased GI:Palpation: Normal GI: Tenderness: RLQ, Mild and Moderate; negative Epigastric, Rebound, Guarding or Rigidity Skin: Normal Musculoskeletal: Normal Psychiatric: Normal Mood Description: Calm Affect: Normal Speech Pattern: Clear and Appropriate Laboratory and Diagnostics 03/31/24 04:17 03/31/24 04:17 Labs: Laboratory WBC 8.2 X10^3/uL (3.6-10.0) 03/31/24 04:17 RBC 4.78 X10^6/uL (4.7-6.0) 03/31/24 04:17 Hgb 11.6 g/dL (13.5-18.0) L 03/31/24 04:17 Hct 36.2 % (42.0-54.0) L 03/31/24 04:17 MCV 75.9 fL (80.0-100.0) L 03/31/24 04:17 MCH 24.3 pg (27.0-34.0) L 03/31/24 04:17 MCHC 32.0 g/dL (33.0-35.0) L 03/31/24 04:17 RDW 16.5 % (11.6-16.5) 03/31/24 04:17 Plt Count 220 X10^3/uL (150.0-450.0) 03/31/24 04:17 MPV 9.9 fL (7.4-11.0) 03/31/24 04:17 Neut % (Auto) 89.0 % (42.0-75.0) H 03/31/24 04:17 Lymph % (Auto) 7.0 % (21.0-51.0) L 03/31/24 04:17 [place] % (Auto) 3.9 % (0.0-13.0) 03/31/24 04:17 Eos % (Auto) 0.0 % (0.9-2.9) L 03/31/24 04:17 Baso % (Auto) 0.1 % (0.2-1.0) L 03/31/24 04:17 Neut # (Auto) 7.3 x10^3/uL (2.2-4.8) H 03/31/24 04:17 Lymph # (Auto) 0.6 X10^3/uL (1.3-2.9) L 03/31/24 04:17 [place] # (Auto) 0.3 x10^3/uL (0.3-0.8) 03/31/24 04:17 Eos # (Auto) 0.0 x10^3/uL (0.0-0.2) 03/31/24 04:17 Baso # (Auto) 0.0 X10^3/uL (0.0-0.1) 03/31/24 04:17 Absolute Nucleated RBC 0.0 /100WBC 03/31/24 04:17 ESR 26 MM/HOUR (0-15) H 03/30/24 12:18 Sodium 141 mmol/L (136-145) 03/31/24 04:17 Corrected Sodium TNP 03/31/24 04:17 Potassium 4.0 mmol/L (3.5-5.1) 03/31/24 04:17 Chloride 103 mmol/L (98-107) 03/31/24 04:17 Carbon Dioxide 27.5 mmol/L (21-32) 03/31/24 04:17 BUN 10 mg/dL (7-18) 03/31/24 04:17 Creatinine 1.10 mg/dL (0.70-1.30) 03/31/24 04:17 Est GFR (MDRD) Af Amer > 60 (>60) 03/31/24 04:17 Est GFR (MDRD) Non-Af > 60 (>60) 03/31/24 04:17 Glucose 103 mg/dL (65-99) H 03/31/24 04:17 Calcium 8.7 mg/dL (8.5-10.1) 03/31/24 04:17 Corrected Calcium 9.3 mg/dL (8.5-10.1) 03/31/24 04:17 Magnesium 2.3 mg/dL (2.0-2.9) 03/31/24 04:17 Total Bilirubin 0.40 mg/dL (0.2-1.0) 03/31/24 04:17 AST 14 Units/L (15-37) L 03/31/24 04:17 ALT 16 Units/L (12-78) 03/31/24 04:17 Alkaline Phosphatase 64 Units/L (46-116) 03/31/24 04:17 Total Protein 7.0 g/dL (6.4-8.2) 03/31/24 04:17 Albumin 3.3 g/dL (3.4-5.0) L 03/31/24 04:17 Globulin 3.7 g/dL (2.5-4.5) 03/31/24 04:17 Albumin/Globulin Ratio 0.9 Ratio (1.1-2.1) L 03/31/24 04:17 Amylase 124 Units/L (25-115) H 03/29/24 15:25 Lipase 13 Units/L (16-77) L 03/29/24 15:25 Specimen Type Clean catch urine 03/30/24 04:05 Urine Color Yellow (YELLOW) 03/30/24 04:05 Urine Appearance Clear (CLEAR) 03/30/24 04:05 Urine pH 7.0 (5.0 - 8.0) 03/30/24 04:05 Ur Specific [place] 1.005 (1.000-1.030) 03/30/24 04:05 Urine Protein 1+ (NEGATIVE) 03/30/24 04:05 Urine Glucose (UA) Negative (NEGATIVE) 03/30/24 04:05 Urine Ketones Negative (NEGATIVE) 03/30/24 04:05 Urine Blood Negative (NEGATIVE) 03/30/24 04:05 Urine Nitrite Negative (NEGATIVE) 03/30/24 04:05 Urine Bilirubin Negative (NEGATIVE) 03/30/24 04:05 Urine Urobilinogen Normal (NORMAL) 03/30/24 04:05 Ur Leukocyte Esterase Negative (NEGATIVE) 03/30/24 04:05 Urine RBC None seen /HPF (0-3) 03/30/24 04:05 Urine WBC None seen /HPF (0-5) 03/30/24 04:05 Ur Squamous Epith Cells Rare /HPF (NEGATIVE) 03/30/24 04:05 Urine Bacteria Negative /HPF (NEGATIVE) 03/30/24 04:05 Ur Culture Indicated? No/not indicated 03/30/24 04:05 Assessment and Plan 1: Partial small bowel obstruction. 2: Crohn disease with a history of partial bowel resection. To continue conservative measures, IV antibiotics and IV steroids. Control of the pain. Repeat KUB. CRISTHIAN titer is pending. Problem Patient Problems: Patient Problems SBO (small bowel obstruction) (Acute) K56.609 Exacerbation of Crohn's disease of small intestine (Acute) K50.00
[2024-04-01 04:55] LABS: BASOPHILS % (AUTO) 0.2 % (0.2-1.0); HEMATOCRIT 35.5 % (42.0-54.0); HEMOGLOBIN 11.5 g/dL (13.5-18.0); LYMPHOCYTES # (AUTO) 0.5 X10^3/uL (1.3-2.9); MEAN CORPUSCULAR HEMOGLOBIN 24.3 pg (27.0-34.0); MEAN CORPUSCULAR HGB CONC 32.3 g/dL (33.0-35.0); MEAN CORPUSCULAR VOLUME 75.4 fL (80.0-100.0); MEAN PLATELET VOLUME 9.6 fL (7.4-11.0); MONOCYTES % (AUTO) 7.3 % (0.0-13.0); NEUTROPHILS # (AUTO) 11.9 x10^3/uL (2.2-4.8); NEUTROPHILS % (AUTO) 88.5 % (42.0-75.0); PLATELET COUNT 225 X10^3/uL (150.0-450.0); RED BLOOD COUNT 4.71 X10^6/uL (4.7-6.0); RED CELL DISTRIBUTION WIDTH 16.5 % (11.6-16.5); WHITE BLOOD COUNT 13.5 X10^3/uL (3.6-10.0)
[2024-04-01 05:05] LABS: ALANINE AMINOTRANSFERASE 14 Units/L (12-78); ALBUMIN 3.2 g/dL (3.4-5.0); ALKALINE PHOSPHATASE 58 Units/L (46-116); ASPARTATE AMINO TRANSFERASE 12 Units/L (15-37); BLOOD UREA NITROGEN 11 mg/dL (7-18); CALCIUM 8.9 mg/dL (8.5-10.1); CARBON DIOXIDE 28.2 mmol/L (21-32); CHLORIDE 102 mmol/L (98-107); COR CA(FOR HYPOALB) 9.5 mg/dL (8.5-10.1); CREATININE 1.08 mg/dL (0.70-1.30); GLUCOSE 108 mg/dL (65-99); MAGNESIUM 2.4 mg/dL (2.0-2.9); POTASSIUM 4.2 mmol/L (3.5-5.1); SODIUM 140 mmol/L (136-145); TOTAL PROTEIN 6.7 g/dL (6.4-8.2); eGFR NON BLACK RACES > 60 (>60)
--- NOTE | 2024-04-01 09:33 | RAD ---
EXAM: KUB HISTORY: Follow-up obstruction COMPARISON: 03/31/2024 FINDINGS: There are several dilated segments of small bowel in the central abdomen. Gas is present in the col on. There is no evidence for mass, abnormal fluid collection or calcification. The NG tube is not i dentified on this image although the epigastric area is incompletely visualized. IMPRESSION: Localized small-bowel dilatation concerning for partial SBO. NG tube not identified, see above. THIS IS AN ELECTRONICALLY VERIFIED FINAL REPORT 04/01/2024 9:29 AM - Electronically signed by Kash Jha MD
--- NOTE | 2024-04-01 11:10 | NOTE.SOAP ---
Soap Note Note for Day of Date of Exam: 04/01/24 Subjective Data Subjective Data: 75cc via NGT overnight. Belly is better, but still 5-6/10 in RUQ. Tender throughout. Surgery is following. WBCs up this AM. Objective Data Objective Data: WD/WN male in NAD. BS hypoactive in all 4 quadrants. RRR. Lungs clear. NGT in place with dark material present. Mood/affect appropriate. Assessment Assessment: 1) partial SBO- per surgery. recheck NGT. Advance diet per their guidance. 2) Crohn's disease- needs to see GI and resume Humira as an outpt.
--- NOTE | 2024-04-01 12:39 | DR.PROGNOT ---
HOSPITAL PROGRESS NOTE Progress Note for Day of: Progress Note Date: 04/01/24 Chief Complaint Chief Complaint: Still complaining of abdominal pain more towards the right side and right lower quadrant. Repeated KUB showed same dilated small bowel loops in the mid abdomen . No free air. White count 13.5 .electrolytes ,liver function test and renal function are all normal .. Patient is afebrile Abdomen is full with mild to moderate tenderness more towards the right side of the abdomen, bowel sounds are present.. Past Medical Family Social History Past Med/Fam/Surg Hx: No changes since H&P Allergies: Allergies ketorolac [From Toradol] Allergy (Verified 03/29/24 15:46) Vital Signs Vital Signs: Vital Signs Respiratory Rate 18 Physical Exam Oriented: Normal, Time, Person and Place Eyes: Normal Ear: Normal Nose: Normal Throat: Normal Respiratory: Normal Cardiovascular: Normal GI:Auscultation: Decreased GI:Palpation: Normal GI: Tenderness: Other (diffuse moderate abdominal tenderness ,BS+) Skin: Normal Musculoskeletal: Normal Psychiatric: Normal Mood Description: Calm Affect: Normal Speech Pattern: Clear and Appropriate Laboratory and Diagnostics 04/01/24 04:35 04/01/24 04:35 Labs: Laboratory WBC 13.5 X10^3/uL (3.6-10.0) H 04/01/24 04:35 RBC 4.71 X10^6/uL (4.7-6.0) 04/01/24 04:35 Hgb 11.5 g/dL (13.5-18.0) L 04/01/24 04:35 Hct 35.5 % (42.0-54.0) L 04/01/24 04:35 MCV 75.4 fL (80.0-100.0) L 04/01/24 04:35 MCH 24.3 pg (27.0-34.0) L 04/01/24 04:35 MCHC 32.3 g/dL (33.0-35.0) L 04/01/24 04:35 RDW 16.5 % (11.6-16.5) 04/01/24 04:35 Plt Count 225 X10^3/uL (150.0-450.0) 04/01/24 04:35 MPV 9.6 fL (7.4-11.0) 04/01/24 04:35 Neut % (Auto) 88.5 % (42.0-75.0) H 04/01/24 04:35 Lymph % (Auto) 4.0 % (21.0-51.0) L 04/01/24 04:35 [place] % (Auto) 7.3 % (0.0-13.0) 04/01/24 04:35 Eos % (Auto) 0.0 % (0.9-2.9) L 04/01/24 04:35 Baso % (Auto) 0.2 % (0.2-1.0) 04/01/24 04:35 Neut # (Auto) 11.9 x10^3/uL (2.2-4.8) H 04/01/24 04:35 Lymph # (Auto) 0.5 X10^3/uL (1.3-2.9) L 04/01/24 04:35 [place] # (Auto) 1.0 x10^3/uL (0.3-0.8) H 04/01/24 04:35 Eos # (Auto) 0.0 x10^3/uL (0.0-0.2) 04/01/24 04:35 Baso # (Auto) 0.0 X10^3/uL (0.0-0.1) 04/01/24 04:35 Absolute Nucleated RBC 0.0 /100WBC 04/01/24 04:35 ESR 26 MM/HOUR (0-15) H 03/30/24 12:18 Sodium 140 mmol/L (136-145) 04/01/24 04:35 Corrected Sodium TNP 04/01/24 04:35 Potassium 4.2 mmol/L (3.5-5.1) 04/01/24 04:35 Chloride 102 mmol/L (98-107) 04/01/24 04:35 Carbon Dioxide 28.2 mmol/L (21-32) 04/01/24 04:35 BUN 11 mg/dL (7-18) 04/01/24 04:35 Creatinine 1.08 mg/dL (0.70-1.30) 04/01/24 04:35 Est GFR (MDRD) Af Amer > 60 (>60) 04/01/24 04:35 Est GFR (MDRD) Non-Af > 60 (>60) 04/01/24 04:35 Glucose 108 mg/dL (65-99) H 04/01/24 04:35 Calcium 8.9 mg/dL (8.5-10.1) 04/01/24 04:35 Corrected Calcium 9.5 mg/dL (8.5-10.1) 04/01/24 04:35 Magnesium 2.4 mg/dL (2.0-2.9) 04/01/24 04:35 Total Bilirubin 0.40 mg/dL (0.2-1.0) 04/01/24 04:35 AST 12 Units/L (15-37) L 04/01/24 04:35 ALT 14 Units/L (12-78) 04/01/24 04:35 Alkaline Phosphatase 58 Units/L (46-116) 04/01/24 04:35 Total Protein 6.7 g/dL (6.4-8.2) 04/01/24 04:35 Albumin 3.2 g/dL (3.4-5.0) L 04/01/24 04:35 Globulin 3.5 g/dL (2.5-4.5) 04/01/24 04:35 Albumin/Globulin Ratio 0.9 Ratio (1.1-2.1) L 04/01/24 04:35 Amylase 124 Units/L (25-115) H 03/29/24 15:25 Lipase 13 Units/L (16-77) L 03/29/24 15:25 Specimen Type Clean catch urine 03/30/24 04:05 Urine Color Yellow (YELLOW) 03/30/24 04:05 Urine Appearance Clear (CLEAR) 03/30/24 04:05 Urine pH 7.0 (5.0 - 8.0) 03/30/24 04:05 Ur Specific [place] 1.005 (1.000-1.030) 03/30/24 04:05 Urine Protein 1+ (NEGATIVE) 03/30/24 04:05 Urine Glucose (UA) Negative (NEGATIVE) 03/30/24 04:05 Urine Ketones Negative (NEGATIVE) 03/30/24 04:05 Urine Blood Negative (NEGATIVE) 03/30/24 04:05 Urine Nitrite Negative (NEGATIVE) 03/30/24 04:05 Urine Bilirubin Negative (NEGATIVE) 03/30/24 04:05 Urine Urobilinogen Normal (NORMAL) 03/30/24 04:05 Ur Leukocyte Esterase Negative (NEGATIVE) 03/30/24 04:05 Urine RBC None seen /HPF (0-3) 03/30/24 04:05 Urine WBC None seen /HPF (0-5) 03/30/24 04:05 Ur Squamous Epith Cells Rare /HPF (NEGATIVE) 03/30/24 04:05 Urine Bacteria Negative /HPF (NEGATIVE) 03/30/24 04:05 Ur Culture Indicated? No/not indicated 03/30/24 04:05 CRISTHIAN Screen See scanned report 03/30/24 12:18 CRISTHIAN Titer See scanned report 03/30/24 12:18 CRISTHIAN Pattern See scanned report 03/30/24 12:18 Assessment and Plan 1: Partial small bowel obstruction. to D/C NGT and full liquid . 2: Crohn disease with a history of partial bowel resection. To continue conservative measures, IV antibiotics and IV steroids. Control of the pain. Repeat KUB. CRISTHIAN titer is pending. Problem Patient Problems: Patient Problems (Updated 03/29/24 @ 18:13 by Kennedy Stevenson) SBO (small bowel obstruction) (Acute) K56.609 Exacerbation of Crohn's disease of small intestine (Acute) K50.00
[2024-04-02 05:16] LABS: HEMOGLOBIN 11.9 g/dL (13.5-18.0)
[2024-04-02 05:21] LABS: BASOPHILS % (AUTO) 0.2 % (0.2-1.0); LYMPHOCYTES % (AUTO) 4.9 % (21.0-51.0); MEAN CORPUSCULAR HEMOGLOBIN 24.2 pg (27.0-34.0); MEAN CORPUSCULAR HGB CONC 32.1 g/dL (33.0-35.0); MEAN CORPUSCULAR VOLUME 75.5 fL (80.0-100.0); MEAN PLATELET VOLUME 9.5 fL (7.4-11.0); MONOCYTES # (AUTO) 1.3 x10^3/uL (0.3-0.8); MONOCYTES % (AUTO) 6.3 % (0.0-13.0); NEUTROPHILS % (AUTO) 88.6 % (42.0-75.0); PLATELET COUNT 230 X10^3/uL (150.0-450.0); RED CELL DISTRIBUTION WIDTH 16.3 % (11.6-16.5); WHITE BLOOD COUNT 20.3 X10^3/uL (3.6-10.0)
[2024-04-02 05:27] LABS: ALANINE AMINOTRANSFERASE 18 Units/L (12-78); ALBUMIN 3.2 g/dL (3.4-5.0); ALKALINE PHOSPHATASE 63 Units/L (46-116); ASPARTATE AMINO TRANSFERASE 11 Units/L (15-37); BLOOD UREA NITROGEN 10 mg/dL (7-18); CALCIUM 8.7 mg/dL (8.5-10.1); CARBON DIOXIDE 27.8 mmol/L (21-32); CHLORIDE 104 mmol/L (98-107); COR CA(FOR HYPOALB) 9.3 mg/dL (8.5-10.1); CREATININE 1.05 mg/dL (0.70-1.30); GLUCOSE 103 mg/dL (65-99); MAGNESIUM 2.5 mg/dL (2.0-2.9); POTASSIUM 3.9 mmol/L (3.5-5.1); SODIUM 141 mmol/L (136-145); TOTAL PROTEIN 6.9 g/dL (6.4-8.2); eGFR NON BLACK RACES > 60 (>60)
--- NOTE | 2024-04-02 06:23 | RAD ---
EXAM:KUBHISTORY:Small-bowel obstructionCOMPARISON:04/01/2024FINDINGS: Gas is present within the colon. Findings are suggestive of a possible partial small bowel obstruction. Clinical correlation should determine the need for follow-up CT abdomen pelvis. No abnormal masses or abnormal calcifications identified. Regional skeleton is intact.IMPRESSION:Findings remain suspicious for partial small bowel obstruction, unchangedTHIS IS AN ELECTRONICALLY VERIFIED FINAL AETSOD3304/02/2024 6:20 AM - Electronically signed by Michael Logan MD
--- NOTE | 2024-04-02 08:17 | DR.PROGNOT ---
HOSPITAL PROGRESS NOTE Progress Note for Day of: Progress Note Date: 04/02/24 Chief Complaint Chief Complaint: Patient had several bowel movement last night. Still having moderate abdominal pain more towards the right side, no nausea or vomiting, tolerating liquid diet. White count is elevated up to 20,000 which could be related to steroids. KUB showed air in the colon with persistent partial small bowel obstruction. CRISTHIAN titer is positive. Electrolytes, BUN/creatinine and liver function tests are normal. To advance diet, if tolerated patient could be discharged in the morning on prednisone 10 mg twice a day and [place] 5 every 8 hours as needed, will follow in 2 weeks. Past Medical Family Social History Past Med/Fam/Surg Hx: No changes since H&P Allergies: Allergies ketorolac [From Toradol] Allergy (Verified 03/29/24 15:46) Vital Signs Vital Signs: Vital Signs Temperature 97.5 F Pulse Rate [Brachial] 85 Respiratory Rate 20 Respiratory Rate 20 Respiratory Rate 18 Blood Pressure [Right Arm] 156/92 O2 Sat by Pulse Oximetry 97 Physical Exam Oriented: Normal, Time, Person and Place Eyes: Normal Ear: Normal Nose: Normal Throat: Normal Respiratory: Normal Cardiovascular: Normal GI:Auscultation: Decreased GI:Palpation: Normal GI: Tenderness: Other (diffuse moderate abdominal tenderness ,BS+) Skin: Normal Musculoskeletal: Normal Psychiatric: Normal Mood Description: Calm Affect: Normal Speech Pattern: Clear and Appropriate Laboratory and Diagnostics 04/02/24 04:15 04/02/24 04:15 Labs: Laboratory WBC 20.3 X10^3/uL (3.6-10.0) H 04/02/24 04:15 RBC 4.90 X10^6/uL (4.7-6.0) 04/02/24 04:15 Hgb 11.9 g/dL (13.5-18.0) L 04/02/24 04:15 Hct 37.0 % (42.0-54.0) L 04/02/24 04:15 MCV 75.5 fL (80.0-100.0) L 04/02/24 04:15 MCH 24.2 pg (27.0-34.0) L 04/02/24 04:15 MCHC 32.1 g/dL (33.0-35.0) L 04/02/24 04:15 RDW 16.3 % (11.6-16.5) 04/02/24 04:15 Plt Count 230 X10^3/uL (150.0-450.0) 04/02/24 04:15 MPV 9.5 fL (7.4-11.0) 04/02/24 04:15 Neut % (Auto) 88.6 % (42.0-75.0) H 04/02/24 04:15 Lymph % (Auto) 4.9 % (21.0-51.0) L 04/02/24 04:15 [place] % (Auto) 6.3 % (0.0-13.0) 04/02/24 04:15 Eos % (Auto) 0.0 % (0.9-2.9) L 04/02/24 04:15 Baso % (Auto) 0.2 % (0.2-1.0) 04/02/24 04:15 Neut # (Auto) 18.0 x10^3/uL (2.2-4.8) H 04/02/24 04:15 Lymph # (Auto) 1.0 X10^3/uL (1.3-2.9) L 04/02/24 04:15 [place] # (Auto) 1.3 x10^3/uL (0.3-0.8) H 04/02/24 04:15 Eos # (Auto) 0.0 x10^3/uL (0.0-0.2) 04/02/24 04:15 Baso # (Auto) 0.0 X10^3/uL (0.0-0.1) 04/02/24 04:15 Absolute Nucleated RBC 0.1 /100WBC 04/02/24 04:15 ESR 26 MM/HOUR (0-15) H 03/30/24 12:18 Sodium 141 mmol/L (136-145) 04/02/24 04:15 Corrected Sodium TNP 04/02/24 04:15 Potassium 3.9 mmol/L (3.5-5.1) 04/02/24 04:15 Chloride 104 mmol/L (98-107) 04/02/24 04:15 Carbon Dioxide 27.8 mmol/L (21-32) 04/02/24 04:15 BUN 10 mg/dL (7-18) 04/02/24 04:15 Creatinine 1.05 mg/dL (0.70-1.30) 04/02/24 04:15 Est GFR (MDRD) Af Amer > 60 (>60) 04/02/24 04:15 Est GFR (MDRD) Non-Af > 60 (>60) 04/02/24 04:15 Glucose 103 mg/dL (65-99) H 04/02/24 04:15 Calcium 8.7 mg/dL (8.5-10.1) 04/02/24 04:15 Corrected Calcium 9.3 mg/dL (8.5-10.1) 04/02/24 04:15 Magnesium 2.5 mg/dL (2.0-2.9) 04/02/24 04:15 Total Bilirubin 0.30 mg/dL (0.2-1.0) 04/02/24 04:15 AST 11 Units/L (15-37) L 04/02/24 04:15 ALT 18 Units/L (12-78) 04/02/24 04:15 Alkaline Phosphatase 63 Units/L (46-116) 04/02/24 04:15 Total Protein 6.9 g/dL (6.4-8.2) 04/02/24 04:15 Albumin 3.2 g/dL (3.4-5.0) L 04/02/24 04:15 Globulin 3.7 g/dL (2.5-4.5) 04/02/24 04:15 Albumin/Globulin Ratio 0.9 Ratio (1.1-2.1) L 04/02/24 04:15 Amylase 124 Units/L (25-115) H 03/29/24 15:25 Lipase 13 Units/L (16-77) L 03/29/24 15:25 Specimen Type Clean catch urine 03/30/24 04:05 Urine Color Yellow (YELLOW) 03/30/24 04:05 Urine Appearance Clear (CLEAR) 03/30/24 04:05 Urine pH 7.0 (5.0 - 8.0) 03/30/24 04:05 Ur Specific [place] 1.005 (1.000-1.030) 03/30/24 04:05 Urine Protein 1+ (NEGATIVE) 03/30/24 04:05 Urine Glucose (UA) Negative (NEGATIVE) 03/30/24 04:05 Urine Ketones Negative (NEGATIVE) 03/30/24 04:05 Urine Blood Negative (NEGATIVE) 03/30/24 04:05 Urine Nitrite Negative (NEGATIVE) 03/30/24 04:05 Urine Bilirubin Negative (NEGATIVE) 03/30/24 04:05 Urine Urobilinogen Normal (NORMAL) 03/30/24 04:05 Ur Leukocyte Esterase Negative (NEGATIVE) 03/30/24 04:05 Urine RBC None seen /HPF (0-3) 03/30/24 04:05 Urine WBC None seen /HPF (0-5) 03/30/24 04:05 Ur Squamous Epith Cells Rare /HPF (NEGATIVE) 03/30/24 04:05 Urine Bacteria Negative /HPF (NEGATIVE) 03/30/24 04:05 Ur Culture Indicated? No/not indicated 03/30/24 04:05 CRISTHIAN Screen See scanned report 03/30/24 12:18 CRISTHIAN Titer See scanned report 03/30/24 12:18 CRISTHIAN Pattern See scanned report 03/30/24 12:18 Assessment and Plan 1: Partial small bowel obstruction. To advance diet today 2: Crohn disease with positive CRISTHIAN titer. To continue conservative measures, IV antibiotics and IV steroids. Control of the pain. Repeat KUB. Will follow in 2 weeks and keep him on oral steroids Future GI endoscopy Problem Patient Problems: Patient Problems SBO (small bowel obstruction) (Acute) K56.609 Exacerbation of Crohn's disease of small intestine (Acute) K50.00
--- NOTE | 2024-04-02 10:18 | PCM.PROG ---
Progress Note Progress Note for Day of Date of Exam: 04/02/24 Subjective Subjective: Patient is a 39 year old male admitted for Crohn's flare up and partial small bowel obstruction. General surgery -Dr Frances is following patient. This morning patient reports some abdominal pain. No nausea or vomiting. He is tolerating a liquid diet. He does have a leukocytosis that is likely due to steroids. CRISTHIAN positive. KUB was obtained that revealed unchanged partial small bowel obstruction. Recommendations per surgery is to advance diet. Will likely be discharged tomorrow with follow-up with surgery outpatient. Rx prednisone and norco to help with pain. Otherwise continue with current treatment plan. Continue closely monitor and follow-up labs. Past Medical Family Social History Past Med/Fam/Surg Hx: No changes since H&P Allergies: Allergies ketorolac [From Toradol] Allergy (Verified 03/29/24 15:46) Review of Systems ROS changes noted: see HPI Vital Signs and I&O's Vital Signs: Vital Signs Temperature 97.5 F Pulse Rate [Brachial] 85 Respiratory Rate 20 Respiratory Rate 20 Respiratory Rate 20 Respiratory Rate 18 Blood Pressure [Right Arm] 156/92 O2 Sat by Pulse Oximetry 97 Intake and Output: Intake & Output 03/30/24 03/31/24 04/01/24 04/02/24 23:59 23:59 23:59 23:59 Intake Total 3088 / 3088 2951 / 2951 2967 / 2967 1873 / 1873 Output Total 2125 / 2125 2375 / 2375 3596 / 3596 Balance 963 / 963 576 / 576 -629 / -629 187 / 1873 Physical Exam Oriented: Normal, Time, Person and Place Eyes: Normal Ear: Normal Nose: Normal Throat: Normal Respiratory: Normal Cardiovascular: Normal Auscultation: Bowel Sounds: Normal Tenderness: Other (diffuse mild abdominal tenderness ,BS+) Skin: Normal Musculoskeletal: Normal Psychiatric: Normal Mood Description: Calm Affect: Normal Speech Pattern: Clear and Appropriate Laboratory and Diagnostics 04/02/24 04:15 04/02/24 04:15 Labs: Laboratory WBC 20.3 X10^3/uL (3.6-10.0) H 04/02/24 04:15 RBC 4.90 X10^6/uL (4.7-6.0) 04/02/24 04:15 Hgb 11.9 g/dL (13.5-18.0) L 04/02/24 04:15 Hct 37.0 % (42.0-54.0) L 04/02/24 04:15 MCV 75.5 fL (80.0-100.0) L 04/02/24 04:15 MCH 24.2 pg (27.0-34.0) L 04/02/24 04:15 MCHC 32.1 g/dL (33.0-35.0) L 04/02/24 04:15 RDW 16.3 % (11.6-16.5) 04/02/24 04:15 Plt Count 230 X10^3/uL (150.0-450.0) 04/02/24 04:15 MPV 9.5 fL (7.4-11.0) 04/02/24 04:15 Neut % (Auto) 88.6 % (42.0-75.0) H 04/02/24 04:15 Lymph % (Auto) 4.9 % (21.0-51.0) L 04/02/24 04:15 [place] % (Auto) 6.3 % (0.0-13.0) 04/02/24 04:15 Eos % (Auto) 0.0 % (0.9-2.9) L 04/02/24 04:15 Baso % (Auto) 0.2 % (0.2-1.0) 04/02/24 04:15 Neut # (Auto) 18.0 x10^3/uL (2.2-4.8) H 04/02/24 04:15 Lymph # (Auto) 1.0 X10^3/uL (1.3-2.9) L 04/02/24 04:15 [place] # (Auto) 1.3 x10^3/uL (0.3-0.8) H 04/02/24 04:15 Eos # (Auto) 0.0 x10^3/uL (0.0-0.2) 04/02/24 04:15 Baso # (Auto) 0.0 X10^3/uL (0.0-0.1) 04/02/24 04:15 Absolute Nucleated RBC 0.1 /100WBC 04/02/24 04:15 ESR 26 MM/HOUR (0-15) H 03/30/24 12:18 Sodium 141 mmol/L (136-145) 04/02/24 04:15 Corrected Sodium TNP 04/02/24 04:15 Potassium 3.9 mmol/L (3.5-5.1) 04/02/24 04:15 Chloride 104 mmol/L (98-107) 04/02/24 04:15 Carbon Dioxide 27.8 mmol/L (21-32) 04/02/24 04:15 BUN 10 mg/dL (7-18) 04/02/24 04:15 Creatinine 1.05 mg/dL (0.70-1.30) 04/02/24 04:15 Est GFR (MDRD) Af Amer > 60 (>60) 04/02/24 04:15 Est GFR (MDRD) Non-Af > 60 (>60) 04/02/24 04:15 Glucose 103 mg/dL (65-99) H 04/02/24 04:15 Calcium 8.7 mg/dL (8.5-10.1) 04/02/24 04:15 Corrected Calcium 9.3 mg/dL (8.5-10.1) 04/02/24 04:15 Magnesium 2.5 mg/dL (2.0-2.9) 04/02/24 04:15 Total Bilirubin 0.30 mg/dL (0.2-1.0) 04/02/24 04:15 AST 11 Units/L (15-37) L 04/02/24 04:15 ALT 18 Units/L (12-78) 04/02/24 04:15 Alkaline Phosphatase 63 Units/L (46-116) 04/02/24 04:15 Total Protein 6.9 g/dL (6.4-8.2) 04/02/24 04:15 Albumin 3.2 g/dL (3.4-5.0) L 04/02/24 04:15 Globulin 3.7 g/dL (2.5-4.5) 04/02/24 04:15 Albumin/Globulin Ratio 0.9 Ratio (1.1-2.1) L 04/02/24 04:15 Amylase 124 Units/L (25-115) H 03/29/24 15:25 Lipase 13 Units/L (16-77) L 03/29/24 15:25 Specimen Type Clean catch urine 03/30/24 04:05 Urine Color Yellow (YELLOW) 03/30/24 04:05 Urine Appearance Clear (CLEAR) 03/30/24 04:05 Urine pH 7.0 (5.0 - 8.0) 03/30/24 04:05 Ur Specific Sharples 1.005 (1.000-1.030) 03/30/24 04:05 Urine Protein 1+ (NEGATIVE) 03/30/24 04:05 Urine Glucose (UA) Negative (NEGATIVE) 03/30/24 04:05 Urine Ketones Negative (NEGATIVE) 03/30/24 04:05 Urine Blood Negative (NEGATIVE) 03/30/24 04:05 Urine Nitrite Negative (NEGATIVE) 03/30/24 04:05 Urine Bilirubin Negative (NEGATIVE) 03/30/24 04:05 Urine Urobilinogen Normal (NORMAL) 03/30/24 04:05 Ur Leukocyte Esterase Negative (NEGATIVE) 03/30/24 04:05 Urine RBC None seen /HPF (0-3) 03/30/24 04:05 Urine WBC None seen /HPF (0-5) 03/30/24 04:05 Ur Squamous Epith Cells Rare /HPF (NEGATIVE) 03/30/24 04:05 Urine Bacteria Negative /HPF (NEGATIVE) 03/30/24 04:05 Ur Culture Indicated? No/not indicated 03/30/24 04:05 CRISTHIAN Screen See scanned report 03/30/24 12:18 CRISTHIAN Titer See scanned report 03/30/24 12:18 CRISTHIAN Pattern See scanned report 03/30/24 12:18 Plan (1) Exacerbation of Crohn's disease of small intestine: Status: Acute Plan: 1. Continue IV hydration 2. Continue IV Zosyn 3. Continue soluemdrol (2) SBO (small bowel obstruction): Status: Acute Plan: Dr Gustafson (3) Abdominal pain: Status: Acute Qualifiers: Abdominal location: generalized Qualified Code(s): R10.84 - Generalized abdominal pain Plan: Continue pain control with as needed morphine sulfate IV.
[2024-04-03 06:02] LABS: BASOPHILS % (AUTO) 0.1 % (0.2-1.0); HEMATOCRIT 38.3 % (42.0-54.0); HEMOGLOBIN 12.2 g/dL (13.5-18.0); LYMPHOCYTES # (AUTO) 1.1 X10^3/uL (1.3-2.9); LYMPHOCYTES % (AUTO) 5.2 % (21.0-51.0); MEAN CORPUSCULAR HEMOGLOBIN 24.1 pg (27.0-34.0); MEAN CORPUSCULAR HGB CONC 31.9 g/dL (33.0-35.0); MEAN CORPUSCULAR VOLUME 75.6 fL (80.0-100.0); MEAN PLATELET VOLUME 9.6 fL (7.4-11.0); MONOCYTES # (AUTO) 1.4 x10^3/uL (0.3-0.8); MONOCYTES % (AUTO) 6.6 % (0.0-13.0); NEUTROPHILS # (AUTO) 18.7 x10^3/uL (2.2-4.8); NEUTROPHILS % (AUTO) 88.1 % (42.0-75.0); PLATELET COUNT 228 X10^3/uL (150.0-450.0); RED BLOOD COUNT 5.06 X10^6/uL (4.7-6.0); RED CELL DISTRIBUTION WIDTH 16.1 % (11.6-16.5); WHITE BLOOD COUNT 21.2 X10^3/uL (3.6-10.0)
[2024-04-03 06:15] LABS: ALANINE AMINOTRANSFERASE 15 Units/L (12-78); ALBUMIN 3.1 g/dL (3.4-5.0); ALKALINE PHOSPHATASE 62 Units/L (46-116); ASPARTATE AMINO TRANSFERASE 10 Units/L (15-37); BLOOD UREA NITROGEN 12 mg/dL (7-18); CALCIUM 8.5 mg/dL (8.5-10.1); CHLORIDE 103 mmol/L (98-107); COR CA(FOR HYPOALB) 9.2 mg/dL (8.5-10.1); COR NA(FOR HYPERGLY) 140 mmol/L (136-145); CREATININE 1.11 mg/dL (0.70-1.30); GLUCOSE 116 mg/dL (65-99); POTASSIUM 3.8 mmol/L (3.5-5.1); SODIUM 140 mmol/L (136-145); TOTAL PROTEIN 6.8 g/dL (6.4-8.2); eGFR NON BLACK RACES > 60 (>60)
[2024-04-03 06:54] LABS: BAND NEUTROPHILS % 1 % (0-10); PLATELET MORPHOLOGY COMMENT NORMAL (NORMAL)
[2024-04-03 07:21] VITALS: BP 168/92; PULSE 58; TEMP 97.5; O2SAT 98
[2024-04-03] MEDS ORDERED: CONSULT PHARMACY - POTASSIUM & MAGNESIUM XX SCH (08:00)
[2024-04-03 09:27] VITALS: RESP 16
== END 2024-04-03 12:40 | disposition home or self-care (01) | DRG 387 ==
LOC: ER 14:36 → MED/SURG 18:27
PROVIDERS: ADMIT Family Medicine; ATTEND Family Medicine

== ENCOUNTER 2025-02-09 19:34 | Inpatient (IN) ==
--- NOTE | 2025-02-09 20:37 | DR.ABDMALE ---
HPI Time seen Time Seen by Provider: 02/09/25 20:35 PCP Primary Care Physician: DIANA HPI comment HPI Comment: 40 y/o s/p bowel resection for Crohn's in the remote past now with intermittent abd cramping mainly on the rt side for the past couple of weeks as below; he re-started prednisone in November but has had no relief; he has not seen GI (Dr Delong) in some time; he denies f/c/n/v/d and last bm was yesterday and wnl; no dysuria or hematuria; he has been eating jello and soft foods but says his weight is about the same as it always is Complaint Chief Complaint:: PT AMBULATORY IN ED WITH C/O CROHN'S FLARE. PT STATES HE HAS BEEN HAVING ABD CRAMPING OFF AND ON FOR A COUPLE OF WEEKS. DENIES N/V OR ANY OTHER SYMPTOMS. COVID-19 Coronavirus risk:travel/contact w/high risk person: No Has patient experienced Coronavirus symptoms: No Mode of arrival Mode of Arrival: Ambulatory Timing Onset of Chief Complaint: 01/26/25 PMH PMH Past Medical History: Yes Past Medical History: Migraines Past Medical History Comment: CROHN'S Past Surgical History: Yes Surgical History: Abdominal Surgery and Bowel Resection Family History History of Family Medical Conditions: Yes Family Medical History: Diabetes Mellitus and Hypertension Social History Does patient currently use any type of tobacco product: No Have you used tobacco products in the last 12 months: No Type of Tobacco Use: None Does any household member use tobacco: No Alcohol Use: None Do you use any recreational Drugs:: No Lives With: Family Lives Where: Home Travel Risk Coronavirus risk:travel/contact w/high risk person: No Has patient experienced Coronavirus symptoms: No Infectious screening In the last 2 months have you had wt loss of >10#?: NO Have you had fever, night sweats or hemotysis?: No Have you traveled outside the country in the last 6 months?: No Isolation: Standard ROS Review of Systems Constitutional: No Symptoms Reported Eyes: No Symptoms Reported ENTM: No Symptoms Reported Respiratoy: No Symptoms Reported Cardiovascular: No Symptoms Reported Gastrointestinal/Abdominal: See HPI Genitourinary: No Symptoms Reported Neurological: No Symptoms Reported Musculoskeletal: No Symptoms Reported Integumentary: No Symptoms Reported Hematologic/Lymphatic: No Symptoms Reported Endocrine: No Symptoms Reported Psychiatric: No Symptoms Reported PE Vital Signs Vital Signs: Temp Pulse Resp BP BP Pulse Ox O2 Del Method 02/09/25 22:24 112/61 02/09/25 19:35 97.7 F 80 20 96/52 100 Room Air General Limitations: No Limitations General Appearance: Alert and In No Apparent Distress Head Head Exam: Normal Inspection Eyes Eye exam: Normal Appearance ENT ENT Exam: Normal Exam Neck Neck Exam: Normal Inspection Chest Chest Inspection: Normal Inspection Respiratory Respiratory Exam: Normal Lung Sounds Bilat Cardiovascular Cardiovascular Exam: Regular Rate and Normal Rhythm Abdominal Exam Abdominal Exam: Normal Inspection and Normal Bowel Sounds Abdominal Tenderness: RLQ, Suprapubic and Mild Rectal Rectal Exam: Deferred Back Back Exam: Normal Inspection Extremeties Extremities Exam: Normal Inspection Exam: Male: Deferred Neurologic Neurological Exam: Alert and Oriented X3 Psychiatric Psychiatric Exam: Normal Affect and Normal Mood Skin Skin Exam: Warm, Dry, Intact and Normal Color COURSE Reevaluation 1st: Improved (BP improved; "no pain as long as I lay still".) Consultation Called: 22:35 (Dr Christensen accepts admission.) ROR Labs Reviewed Laboratory Results Reviewed?: Yes 02/09/25 20:52 02/09/25 20:52 Laboratory: WBC 9.9 X10^3/uL (3.6-10.0) 02/09/25 20:52 RBC 5.47 X10^6/uL (4.7-6.0) 02/09/25 20:52 Hgb 13.1 g/dL (13.5-18.0) L 02/09/25 20:52 Hct 40.8 % (42.0-54.0) L 02/09/25 20:52 MCV 74.6 fL (80.0-100.0) L 02/09/25 20:52 MCH 24.0 pg (27.0-34.0) L 02/09/25 20:52 MCHC 32.2 g/dL (33.0-35.0) L 02/09/25 20:52 RDW 17.2 % (11.6-16.5) H 02/09/25 20:52 Plt Count 193 X10^3/uL (150.0-450.0) 02/09/25 20:52 Plt Count Comment Adequate (ADEQUATE) 02/09/25 20:52 MPV 9.3 fL (7.4-11.0) 02/09/25 20:52 Neut % (Auto) 76.0 % (42.0-75.0) H 02/09/25 20:52 Lymph % (Auto) 12.6 % (21.0-51.0) L 02/09/25 20:52 [place] % (Auto) 10.9 % (0.0-13.0) 02/09/25 20:52 Eos % (Auto) 0.3 % (0.9-2.9) L 02/09/25 20:52 Baso % (Auto) 0.2 % (0.2-1.0) 02/09/25 20: Neut # (Auto) 7.5 x10^3/uL (2.2-4.8) H 02/09/25 20:52 Lymph # (Auto) 1.2 X10^3/uL (1.3-2.9) L 02/09/25 20:52 [place] # (Auto) 1.1 x10^3/uL (0.3-0.8) H 02/09/25 20:52 Eos # (Auto) 0.0 x10^3/uL (0.0-0.2) 02/09/25 20:52 Baso # (Auto) 0.0 X10^3/uL (0.0-0.1) 02/09/25 20:52 Absolute Nucleated RBC 0.1 /100WBC 02/09/25 20:52 Plt Morphology Comment Normal (NORMAL) 02/09/25 20:52 RBC Morphology Abnormal (NORMAL) 02/09/25 20:52 Hypochromasia Slight A 02/09/25 20:52 Anisocytosis Slight A 02/09/25 20:52 Microcytosis Slight A 02/09/25 20:52 Sodium 140 mmol/L (136-145) 02/09/25 20:52 Corrected Sodium TNP 02/09/25 20:52 Potassium 3.8 mmol/L (3.5-5.1) 02/09/25 20: Chloride 102 mmol/L (98-107) 02/09/25 20: Carbon Dioxide 31.5 mmol/L (21-32) 02/09/25 20:52 BUN 12 mg/dL (7-18) 02/09/25 20:52 Creatinine 1.24 mg/dL (0.70-1.30) 02/09/25 20:52 Est GFR (MDRD) Af Amer > 60 (>60) 02/09/25 20:52 Est GFR (MDRD) Non-Af > 60 (>60) 02/09/25 20:52 Glucose 95 mg/dL (65-99) 02/09/25 20:52 Calcium 8.9 mg/dL (8.5-10.1) 02/09/25 20:52 Corrected Calcium TNP 02/09/25 20:52 Total Bilirubin 0.40 mg/dL (0.2-1.0) 02/09/25 20:52 AST 25 Units/L (15-37) 02/09/25 20:52 ALT 44 Units/L (12-78) 02/09/25 20:52 Alkaline Phosphatase 69 Units/L (46-116) 02/09/25 20:52 Total Protein 7.3 g/dL (6.4-8.2) 02/09/25 20:52 Albumin 3.6 g/dL (3.4-5.0) 02/09/25 20:52 Globulin 3.7 g/dL (2.5-4.5) 02/09/25 20:52 Albumin/Globulin Ratio 1.0 Ratio (1.1-2.1) L 02/09/25 20:52 XRAY XRAY Interpreted by: Radiologist X-ray Results: ct abd/pelvis: Distal small-bowel obstruction with point of transition in the right lower quadrant. Closed loop obstruction could have this appearance. Surgical consultation is advised. Inflammatory appearance of the descending colon suggesting colitis. Inspissated stool ball distending the rectal vault consistent with fecal impaction. Opioid Opioid Risk Tool Age (Sam box if 16-45): Yes History of Preadolescent Sexual Abuse: No Total: 1 Total Score Risk Category: Low Risk Copyright: Alistair KHALIL predicting aberrant behaviors Discharge Plan Diagnosis Discharge Problem: SBO (small bowel obstruction), Acute hypotension, Fecal impaction in rectum, Crohn's disease Discharge Plan Patient Disposition: 01 HOME, SELF-CARE Condition: Stable Health Concerns: Post Hospitalization: new medications and changes needed to prevent readmission or further decline. Pt educated and given instructions on all concerns. Plan of Treatment: Continue with present treatment and follow up plan. Pt is to keep follow up appointment as instructed and take medications as ordered. Orders to Discharge Patient Discharge Orders: Discharge (Routine); Ordered 02/09/25 Ordered By: Debbie Pickett Follow ups/Referrals Follow ups/Referrals: ROB ORTIZ [Primary Care Provider] - 3 days Instructions Instructions: Small Bowel Obstruction Stand Alone Forms: Find Help Web Site, Post Hospital Follow Up Care Print Language: SOUTH AFRICAN
[2025-02-09] MEDS: NS 1,000 ML IV 1,000 ML IV ONE (20:54)
[2025-02-09 20:59] LABS: MEAN PLATELET VOLUME 9.3 fL (7.4-11.0); RED CELL DISTRIBUTION WIDTH 17.2 % (11.6-16.5)
[2025-02-09 21:10] LABS: CREATININE 1.24 mg/dL (0.70-1.30); eGFR NON BLACK RACES > 60 (>60)
[2025-02-09 21:15] LABS: PLATELET MORPHOLOGY COMMENT NORMAL (NORMAL)
[2025-02-09] MEDS: OMNIPAQUE 350 mg/mL 100 mL BTL IVP NR (21:43)
--- NOTE | 2025-02-09 22:19 | CT ---
EXAM: CT of the abdomen and pelvis HISTORY: mainly rt side pain s/p colon resection for Crohn'; PT AMBULATORY IN ED WITH C/O CROHN'S FLARE. PT STATES HE HAS BEEN HAVING ABD CRAMPING OFF AND ON FOR A COUPLE OF WEEKS. DENIES N/V OR ANY OTHER SYMPTOMS. COMPARISON: CT of the abdomen and pelvis without contrast March 29, 2024 TECHNIQUE: CT of the abdomen and pelvis with intravenous contrast FINDINGS: Mild hypoventilatory changes are present in the lung bases. The abdominal aorta tapers normally. Celiac and SMA are patent. No liver mass. Contracted gallbladder. Normal adrenal glands. Kidneys are not obstructed. Retroaortic left renal vein is noted. Normal spleen. The pancreas is noninflamed. Food material is present in the stomach. There is inspissated fecal ball distending the rectal vault by 7.7 X 6.6 cm consistent with the CT appearance of fecal impaction. Disimpaction is advised. There is abnormal inflammation and wall thickening of the descending colon. The appendix is unseen. Distal small bowel loops are abnormally distended into the right lower quadrant with a point of transition in the right lower abdomen worrisome for possible closed loop small bowel obstruction. No pelvic free fluid. No free air. Small fatty right inguinal hernia. No suspicious bony lesion. IMPRESSION: Distal small-bowel obstruction with point of transition in the right lower quadrant. Closed loop obstruction could have this appearance. Surgical consultation is advised. Inflammatory appearance of the descending colon suggesting colitis. Inspissated stool ball distending the rectal vault consistent with fecal impaction. All CT scans at this facility use dose modulation, iterative reconstruction, and/or weight based dosing when appropriate to reduce radiation dose to as low as reasonably achievable. THIS IS AN ELECTRONICALLY VERIFIED FINAL REPORT 02/09/2025 10:15 PM - Electronically signed by Otoniel Crawley MD
[2025-02-09] MEDS ORDERED: CONSULT PHARMACY - POTASSIUM & MAGNESIUM XX SCH (23:00)
[2025-02-09] MEDS: OMNIPAQUE 350 mg/mL 100 mL BTL 100 ML ONE (23:02)
[2025-02-09 23:10] VITALS: BMI 20.7
[2025-02-09] MEDS: MORPHINE SULFATE INJ 2 MG INJ IVP PRN (23:14)
[2025-02-09] MEDS: NS 1,000 ML IV 1,000 ML IV SCH (23:14)
[2025-02-10] MEDS: K-RIDER 10 MEQ/100 ML WATER 10 MEQ/100 ML BAG IV SCH (00:23)
[2025-02-10] MEDS: ZOSYN VIAL 3.375 GRAMS 3.375 G in NS 100 ML IV 100 ML IV SCH (00:27)
[2025-02-10] MEDS: MORPHINE SULFATE INJ 2 MG INJ IVP PRN (01:14)
[2025-02-10] MEDS: NS 250 ML IV 25 ML IV PRN (01:22)
[2025-02-10 03:05] LABS: BLOOD/HEMOGLOBIN,URINE NEGATIVE (NEGATIVE); LEUKOCYTE ESTERASE ,URINE NEGATIVE (NEGATIVE); NITRITES,URINE NEGATIVE (NEGATIVE)
[2025-02-10 03:12] LABS: APPEARANCE,URINE CLEAR (CLEAR)
[2025-02-10 03:17] LABS: SQUAMOUS EPITHELIAL CELL,UR NEGATIVE /HPF (NEGATIVE)
[2025-02-10 04:54] LABS: MEAN PLATELET VOLUME 9.6 fL (7.4-11.0); RED CELL DISTRIBUTION WIDTH 17.0 % (11.6-16.5)
[2025-02-10 05:06] LABS: PLATELET MORPHOLOGY COMMENT NORMAL (NORMAL)
[2025-02-10 05:08] LABS: CREATININE 1.09 mg/dL (0.70-1.30); eGFR NON BLACK RACES > 60 (>60)
[2025-02-10] MEDS: COLACE CAP 100 MG PO SCH (08:41)
--- NOTE | 2025-02-10 12:31 | DR.H&P ---
H&P History & Physical for Day of: H&P Date: 02/09/25 Chief Complaint Chief Complaint: abdominal pain History of Present Illness History of Present Illness: Is a 40-year-old male with history of Crohn's disease status post laparoscopic resection of small bowel in the past who presented now with cramping of the abdominal area mainly in the right side. Patient had CT scan consistent with possible closed-loop obstruction although he gives no history of that. There is inflammatory appearance of the descending colon and a stool ball in the rectal vault consistent with fecal impaction. He has no other significant past medical problems. Past Medical History Past Medical History: Migraines Past Surgical History Surgical History: Abdominal Surgery and Bowel Resection Additional Surgical History: hx of small bowel obstruction due to Crohn's disease in the past requiring small bowel resection Family History Family Medical History: Diabetes Mellitus and Hypertension Social History Does patient currently use any type of tobacco product: No Have you used tobacco products in the last 12 months: No Type of Tobacco Use: None Does any household member use tobacco: No Alcohol Use: None Drug Use: None Medications Home Medications: Home Medications Medication Instructions Recorded Confirmed Type NK 02/09/25 02/09/25 History Allergies Allergies Allergy/AdvReac Type Severity Reaction Status Date / Time ketorolac (From Toradol) Allergy Verified 02/09/25 19:41 Labs 02/10/25 04:09 02/10/25 04:09 Labs: Laboratory WBC 11.9 X10^3/uL (3.6-10.0) H 02/10/25 04:09 RBC 5.36 X10^6/uL (4.7-6.0) 02/10/25 04:09 Hgb 12.7 g/dL (13.5-18.0) L 02/10/25 04:09 Hct 39.7 % (42.0-54.0) L 02/10/25 04:09 MCV 74.1 fL (80.0-100.0) L 02/10/25 04:09 MCH 23.6 pg (27.0-34.0) L 02/10/25 04:09 MCHC 31.8 g/dL (33.0-35.0) L 02/10/25 04:09 RDW 17.0 % (11.6-16.5) H 02/10/25 04:09 Plt Count 196 X10^3/uL (150.0-450.0) 02/10/25 04:09 Plt Count Comment Adequate (ADEQUATE) 02/10/25 04:09 MPV 9.6 fL (7.4-11.0) 02/10/25 04:09 Neut % (Auto) 92.7 % (42.0-75.0) H 02/10/25 04:09 Lymph % (Auto) 5.7 % (21.0-51.0) L 02/10/25 04:09 [place] % (Auto) 1.4 % (0.0-13.0) 02/10/25 04:09 Eos % (Auto) 0.0 % (0.9-2.9) L 02/10/25 04:09 Baso % (Auto) 0.2 % (0.2-1.0) 02/10/25 04:09 Neut # (Auto) 11.0 x10^3/uL (2.2-4.8) H 02/10/25 04:09 Lymph # (Auto) 0.7 X10^3/uL (1.3-2.9) L 02/10/25 04:09 [place] # (Auto) 0.2 x10^3/uL (0.3-0.8) L 02/10/25 04:09 Eos # (Auto) 0.0 x10^3/uL (0.0-0.2) 02/10/25 04:09 Baso # (Auto) 0.0 X10^3/uL (0.0-0.1) 02/10/25 04:09 Absolute Nucleated RBC 0.1 /100WBC 02/10/25 04:09 Total Counted 100 02/10/25 04:09 Neutrophils % (Manual) 88 % (39-76) H 02/10/25 04:09 Lymphocytes % (Manual) 11 % (13-43) L 02/10/25 04:09 Monocytes % (Manual) 1 % (4-9) L 02/10/25 04:09 Plt Morphology Comment Normal (NORMAL) 02/10/25 04:09 RBC Morphology Abnormal (NORMAL) 02/10/25 04:09 Hypochromasia 1+ A 02/10/25 04:09 Anisocytosis Slight A 02/10/25 04:09 Microcytosis Slight A 02/10/25 04:09 Sodium 139 mmol/L (136-145) 02/10/25 04:09 Corrected Sodium TNP 02/10/25 04:09 Potassium 4.1 mmol/L (3.5-5.1) 02/10/25 04:09 Chloride 104 mmol/L (98-107) 02/10/25 04:09 Carbon Dioxide 27.5 mmol/L (21-32) 02/10/25 04:09 BUN 10 mg/dL (7-18) 02/10/25 04:09 Creatinine 1.09 mg/dL (0.70-1.30) 02/10/25 04:09 Est GFR (MDRD) Af Amer > 60 (>60) 02/10/25 04:09 Est GFR (MDRD) Non-Af > 60 (>60) 02/10/25 04:09 Glucose 105 mg/dL (65-99) H 02/10/25 04:09 Calcium 8.9 mg/dL (8.5-10.1) 02/10/25 04:09 Corrected Calcium TNP 02/10/25 04:09 Total Bilirubin 0.40 mg/dL (0.2-1.0) 02/10/25 04:09 AST 23 Units/L (15-37) 02/10/25 04:09 ALT 39 Units/L (12-78) 02/10/25 04:09 Alkaline Phosphatase 69 Units/L (46-116) 02/10/25 04:09 Total Protein 7.3 g/dL (6.4-8.2) 02/10/25 04:09 Albumin 3.6 g/dL (3.4-5.0) 02/10/25 04:09 Globulin 3.7 g/dL (2.5-4.5) 02/10/25 04:09 Albumin/Globulin Ratio 1.0 Ratio (1.1-2.1) L 02/10/25 04:09 Specimen Type Clean catch urine 02/10/25 02:52 Urine Color Yellow (YELLOW) 02/10/25 02:52 Urine Appearance Clear (CLEAR) 02/10/25 02:52 Urine pH 6.0 (5.0 - 8.0) 02/10/25 02:52 Ur Specific [place] 1.005 (1.000-1.030) 02/10/25 02:52 Urine Protein 2+ (NEGATIVE) 02/10/25 02:52 Urine Glucose (UA) Negative (NEGATIVE) 02/10/25 02:52 Urine Ketones Negative (NEGATIVE) 02/10/25 02:52 Urine Blood Negative (NEGATIVE) 02/10/25 02:52 Urine Nitrite Negative (NEGATIVE) 02/10/25 02:52 Urine Bilirubin Negative (NEGATIVE) 02/10/25 02:52 Urine Urobilinogen Normal (NORMAL) 02/10/25 02:52 Ur Leukocyte Esterase Negative (NEGATIVE) 02/10/25 02:52 Urine RBC None seen /HPF (0-3) 02/10/25 02:52 Urine WBC None seen /HPF (0-5) 02/10/25 02:52 Ur Squamous Epith Cells Negative /HPF (NEGATIVE) 02/10/25 02:52 Urine Bacteria Negative /HPF (NEGATIVE) 02/10/25 02:52 Ur Culture Indicated? No/not indicated 02/10/25 02:52 Review of Systems Constitutional: See HPI Eyes: No Symptoms Reported ENT: No Symptoms Reported Respiratory: No Symptoms Reported Cardiovascular: No Symptoms Reported Gastrointestinal: See HPI Genitourinary: No Symptoms Reported Musculoskeletal: No Symptoms Reported Skin: No Symptoms Reported Neurological: No Symptoms Reported Physical Exam Vital Signs: Vital Signs Temperature 97.8 F Pulse Rate [Brachial] 85 Respiratory Rate 20 Respiratory Rate 18 Respiratory Rate 18 Respiratory Rate 18 Blood Pressure [Left Arm] 149/74 O2 Sat by Pulse Oximetry 97 Oriented: Normal, Time, Person and Place Eyes: Normal Ear: Normal Nose: Normal Throat: Normal Respiratory: Clear Throughout Cardiovascular: Normal : Normal Auscultation: Bowel Sounds: Normal Palpation: Other (Nondistended. No evidence of peritoneal signs.) Tenderness: RLQ (Mild right lower quadrant tenderness) Skin: Normal Musculoskeletal: Normal Psychiatric: Normal Mood Description: Calm Affect: Normal Speech Pattern: Clear Assessment/Plan (1) Crohn's disease: Status: Acute Plan: Patient examined by me this a.m. He is doing well. No nausea or vomiting. Begin clear liquids. Continue steroids. Will consult Dr. Delong tomorrow when he is in the hospital. (2) Fecal impaction in rectum: Status: Acute (3) Abdominal pain: Qualifiers: Abdominal location: generalized Qualified Code(s): R10.84 - Generalized abdominal pain Status: Acute (4) SBO (small bowel obstruction): Status: Acute
[2025-02-10] MEDS: CITROMA PO ONE (17:06)
--- NOTE | 2025-02-10 19:26 | NOTE.SOAP ---
Soap Note Note for Day of Date of Exam: 02/10/25 Subjective Data Subjective Data: Patient has done well since admission. Tolerating clear liquid diet. Self disimpaction of stool in the anal vault. Have given laxatives and Metamucil. Abdominal pain improved. Objective Data Temperature: 98.1 F Pulse Rate: 95 Respiratory Rate: 18 Blood Pressure: 165/91 O2 Sat by Pulse Oximetry: 96 Objective Data: Still with mild right lower quadrant tenderness. Assessment Assessment: Patient with evidence of possible current Crohn disease or nonspecific inflammation. On steroids. Is concerning for the CT scan did show possible closed-loop although clinically is not acting like that. Plan Plan: Critical diet. Continue steroids and antibiotics. Repeat abdominal se jeannie in the morning
[2025-02-10] MEDS: MIRALAX POWDER (1 DOSE 17 G) PO SCH (20:21)
[2025-02-11 04:57] LABS: MEAN PLATELET VOLUME 9.8 fL (7.4-11.0); RED CELL DISTRIBUTION WIDTH 16.8 % (11.6-16.5)
[2025-02-11 05:08] LABS: COR NA(FOR HYPERGLY) 143 mmol/L (136-145); CREATININE 1.08 mg/dL (0.70-1.30); eGFR NON BLACK RACES > 60 (>60)
--- NOTE | 2025-02-11 07:39 | RAD ---
EXAM: Acute abdominal series three views total HISTORY: Small-bowel obstruction COMPARISON: CT abdomen pelvis 02/09/2025 FINDINGS: Heart size is normal. [place] are normal. Lung allen are clear. No pneumothorax or pleural effusion identified. A dilated loop of bowel in the midabdomen is felt to represent the air and fluid-filled dilated small bowel loop visible on recent CT. Gas is present distally within the colon. Findings are suggestive of small-bowel obstruction closed loop obstruction is possible as was suggested on the CT 02/09/2025 no pneumoperitoneum identified. No abnormal masses or abnormal calcifications identified. Regional skeleton is intact. IMPRESSION: Persistent dilatation of a loop of bowel in the upper midabdomen corresponding to the markedly dilated small bowel described on the recent CT abdomen pelvis 02/09/2025. Small-bowel obstruction is suspected. Closed loop obstruction as was suggested on the recent CT not excluded. No pneumoperitoneum THIS IS AN ELECTRONICALLY VERIFIED FINAL REPORT 02/11/2025 7:35 AM - Electronically signed by Michael Logan MD
--- NOTE | 2025-02-11 10:31 | NOTE.SOAP ---
Soap Note Note for Day of Date of Exam: 02/11/25 Subjective Data Subjective Data: Patient tolerating clear liquids. Had bowel movements. Abdominal pain resolved. Abdominal series still shows some dilated loops question of closed- loop although clinically is not acting like bowel obstruction at all. Objective Data Temperature: 97.8 F Pulse Rate: 98 Respiratory Rate: 20 Blood Pressure: 126/84 O2 Sat by Pulse Oximetry: 97 Objective Data: Abdomen soft, nontender nondistended Assessment Assessment: Recurrence of Crohn's disease ?, question small bowel obstruction Plan Plan: Continue clear liquids and steroids. Await gastroenterology's consultation by
[2025-02-11] MEDS: CITROMA PO ONE (11:46)
[2025-02-11] MEDS: ZOFRAN INJ 4 MG VIAL IVP PRN (20:07)
[2025-02-12 05:22] LABS: COR CA(FOR HYPOALB) 9.1 mg/dL (8.5-10.1); COR NA(FOR HYPERGLY) 141 mmol/L (136-145); CREATININE 0.93 mg/dL (0.70-1.30); eGFR NON BLACK RACES > 60 (>60)
[2025-02-12 05:28] LABS: MEAN PLATELET VOLUME 9.9 fL (7.4-11.0); RED CELL DISTRIBUTION WIDTH 17.0 % (11.6-16.5)
[2025-02-12 06:10] LABS: PLATELET MORPHOLOGY COMMENT NORMAL (NORMAL)
[2025-02-12] MEDS: NORCO 5/325 MG TAB PO PRN (14:07)
--- NOTE | 2025-02-12 17:11 | RAD ---
EXAM: ACUTE ABDOMEN SERI ES HISTORY: small bowel obstruction; COMPARISON: X-ray study from February 11, 2025. CT abdomen and pelvis dated February 09, 2025. TECHNIQUE: 3 views were obtained of the abdomen. Single frontal view of the chest. FINDINGS: Redemonstrated are distended segments of the small bowel measuring up to 5.3 cm in diameter. No evidence for significant interval improvement from the prior KUB from yesterday. As correlated with the CT exam this is consistent with SBO pattern. No evidence for pneumatosis intestinalis. No evidence for pneumoperitoneum. No evidence for acute cardiopulmonary pathology. IMPRESSION: No significant interval change. See above. THIS IS AN ELECTRONICALLY VERIFIED FINAL REPORT 02/12/2025 5:07 PM - Electronically signed by Satish Bullock DO
[2025-02-13 05:06] LABS: MEAN PLATELET VOLUME 9.7 fL (7.4-11.0); RED CELL DISTRIBUTION WIDTH 16.5 % (11.6-16.5)
[2025-02-13 05:14] LABS: COR CA(FOR HYPOALB) 9.5 mg/dL (8.5-10.1); COR NA(FOR HYPERGLY) 142 mmol/L (136-145); CREATININE 1.04 mg/dL (0.70-1.30); eGFR NON BLACK RACES > 60 (>60)
[2025-02-13 05:25] LABS: PLATELET MORPHOLOGY COMMENT NORMAL (NORMAL)
--- NOTE | 2025-02-13 13:10 | NOTE.SOAP ---
Soap Note Note for Day of Date of Exam: 02/12/25 Subjective Data Subjective Data: Patient had been doing better but with more abdominal pain this morning. Mild distention. Abdominal films still showing dilated small bowel patient still having bowel movements without nausea and no vomiting. Objective Data Temperature: 97.5 F Pulse Rate: 87 Respiratory Rate: 18 Blood Pressure: 135/89 O2 Sat by Pulse Oximetry: 97 Objective Data: Mildly tender right lower quadrant, no peritoneal signs. Mild distention. Assessment Assessment: Recurrent Crohn disease, possible small bowel obstruction Plan Plan: Continue IV antibiotics and steroids. Maintain repeat abdominal series and continue to follow. Decrease to clear liquid diet
--- NOTE | 2025-02-13 14:52 | NOTE.SOAP ---
Soap Note Note for Day of Date of Exam: 02/13/25 Subjective Data Subjective Data: Patient feeling better today. No nausea no vomiting less pain. Good bowel movements Objective Data Temperature: 97.5 F Pulse Rate: 87 Respiratory Rate: 18 Blood Pressure: 135/89 O2 Sat by Pulse Oximetry: 97 Objective Data: Non tender abdomen , WBC =21.4 yesterday and 19.6 today Assessment Assessment: Crohn's disease , partial SBO Plan Plan: Continue steroids, IV antibiotics and clear liquid diet. Abdominal films in AM
[2025-02-14 06:44] LABS: MEAN PLATELET VOLUME 10.2 fL (7.4-11.0); RED CELL DISTRIBUTION WIDTH 16.6 % (11.6-16.5)
[2025-02-14 06:56] LABS: COR CA(FOR HYPOALB) 9.6 mg/dL (8.5-10.1); COR NA(FOR HYPERGLY) 142 mmol/L (136-145); CREATININE 1.01 mg/dL (0.70-1.30); eGFR NON BLACK RACES > 60 (>60)
--- NOTE | 2025-02-14 10:17 | NOTE.SOAP ---
Soap Note Note for Day of Date of Exam: 02/14/25 Subjective Data Subjective Data: Patient feeling better this a.m. No nausea no vomiting having bowel movements. Abdominal pain is resolved. Objective Data Temperature: 98.3 F Pulse Rate: 102 Respiratory Rate: 20 Blood Pressure: 145/78 O2 Sat by Pulse Oximetry: 98 Objective Data: Abdomen soft and benign nondistended. Hemoglobin equal 11.8, white blood cell count equal 17.9 Assessment Assessment: Recurrence Crohn disease and partial small bowel obstruction Plan Plan: Begin regular diet again transition to p.o. antibiotics and p.o. prednisone.
[2025-02-14] MEDS: FLAGYL TAB 500 MG PO SCH (13:58)
--- NOTE | 2025-02-14 15:51 | RAD ---
EXAM: ACUTE ABDOMEN SERI ES HISTORY: SBO; COMPARISON: February 12, 2025 FINDINGS: The trachea is midline. The cardiac silhouette is unremarkable. The lungs are clear without focal infiltrate or effusion. The bony thorax is unremarkable. Flat plate and upright evaluation of the abdomen demonstrates a stable bowel-gas pattern with distended loops of small bowel. No pathological soft tissue mass or calcification can be observed. The bony structures are grossly intact. IMPRESSION: 1. No acute cardiopulmonary disease. 2. Stable findings suggesting obstruction. THIS IS AN ELECTRONICALLY VERIFIED FINAL REPORT 02/14/2025 3:47 PM - Electronically signed by Kashif Smith MD
[2025-02-14] MEDS: CIPRO TAB 500 MG PO SCH (21:43)
[2025-02-15 06:04] LABS: MEAN PLATELET VOLUME 10.0 fL (7.4-11.0); RED CELL DISTRIBUTION WIDTH 16.4 % (11.6-16.5)
[2025-02-15 06:21] LABS: COR CA(FOR HYPOALB) 9.7 mg/dL (8.5-10.1); CREATININE 0.98 mg/dL (0.70-1.30); eGFR NON BLACK RACES > 60 (>60)
[2025-02-15 06:32] LABS: PLATELET MORPHOLOGY COMMENT NORMAL (NORMAL)
[2025-02-15] MEDS ORDERED: CONSULT PHARMACY - POTASSIUM & MAGNESIUM XX SCH (07:00)
[2025-02-15] MEDS: PREDNISONE TAB 20 MG PO SCH (08:19)
[2025-02-15] MEDS: K-DUR TAB 20 MEQ PO SCH (08:19)
--- NOTE | 2025-02-15 12:35 | W.DIS.FURT ---
Summary of Discharge Discharge Summary of Date Date of Exam: 02/15/25 Admission Date Date of Admission: 02/15/25 Admission Diagnosis Patient Problems (Updated 02/09/25 @ 22:40 by Debbie Pickett) Crohn's disease (Acute) K50.90 Fecal impaction in rectum (Acute) K56.41 Acute hypotension (Acute) I95.9 SBO (small bowel obstruction) (Acute) K56.609 Hospital Course: This is a 40-year-old male with history of Crohn's disease who had resection of his terminal ileum and cecum in 2005 laparoscopically. He has not had regular follow-up or medications due to lack of insurance. He presented to the [facility] room complaining of abdominal pain and CT scan showed evidence of possible closed-loop obstruction of the small bowel in the right lower quadrant with inflammation of the descending colon. Patient was placed on IV steroids and IV antibiotics. His pain did improve. CT scan also showed a large rectal fecal impaction which resolved with the patient having enemas and self disimpaction. He improved and although the films still showed dilated loops of small bowel clinically he never had bowel obstruction. He was not distended, not vomiting and having good bowel movements. He was seen in consultation by Dr. Delong , gastroenterology ,who had seen him in the past and agreed with our care. He recommended he be discharged home on tapering dose of prednisone and p.o. antibiotics. He was started on a clear liquid diet and then regular diet. He did have 1 day where he felt a little distended but that resolved and now he is tolerating regular diet having good bowel movements with no nausea or vomiting. He is to be discharged home on a tapering dose of prednisone starting at 40 mg. He also will be on p.o. Cipro and p.o. Flagyl. He will follow-up me in 1 week. He also had follow-up with Dr. Delong . There is still a possibility he may require operative intervention because of the findings of the small bowel. Vital Signs: Vital Signs (72 hours) 02/12/25 12:58 02/12/25 13:28 02/12/25 14:07 Temperature Pulse Rate Pulse Rate [Brachial] Respiratory Rate 20 19 20 Blood Pressure Blood Pressure [Left Arm] O2 Sat by Pulse Oximetry Oxygen Delivery Method 02/12/25 15:18 02/12/25 16:00 02/12/25 17:40 Temperature 97.5 F L Pulse Rate Pulse Rate [Brachial] 77 Respiratory Rate 18 18 18 Blood Pressure Blood Pressure [Left Arm] 135/89 O2 Sat by Pulse Oximetry 97 Oxygen Delivery Method Room Air 02/12/25 19:00 02/12/25 20:00 02/12/25 20:43 Temperature 98.4 F Pulse Rate Pulse Rate [Brachial] 61 Respiratory Rate 18 20 Blood Pressure Blood Pressure [Left Arm] 141/98 O2 Sat by Pulse Oximetry 97 Oxygen Delivery Method Room Air 02/12/25 21:13 02/12/25 23:49 02/12/25 23:54 Temperature 98.5 F Pulse Rate Pulse Rate [Brachial] 56 L Respiratory Rate 18 20 20 Blood Pressure Blood Pressure [Left Arm] 140/86 O2 Sat by Pulse Oximetry 94 L Oxygen Delivery Method Room Air 02/13/25 02:55 02/13/25 03:25 02/13/25 03:47 Temperature 99.1 F Pulse Rate Pulse Rate [Brachial] 74 Respiratory Rate 20 20 20 Blood Pressure Blood Pressure [Left Arm] 136/88 O2 Sat by Pulse Oximetry 98 Oxygen Delivery Method Room Air 02/13/25 08:00 02/13/25 09:05 02/13/25 09:13 Temperature 98.0 F Pulse Rate Pulse Rate [Brachial] 72 Respiratory Rate 14 14 Blood Pressure Blood Pressure [Left Arm] 133/84 O2 Sat by Pulse Oximetry 97 Oxygen Delivery Method Room Air Room Air 02/13/25 09:35 02/13/25 11:28 02/13/25 11:58 Temperature Pulse Rate Pulse Rate [Brachial] Respiratory Rate 18 19 18 Blood Pressure Blood Pressure [Left Arm] O2 Sat by Pulse Oximetry Oxygen Delivery Method 02/13/25 12:36 02/13/25 13:10 02/13/25 14:14 Temperature 98.0 F 97.5 F L Pulse Rate 87 Pulse Rate [Brachial] 63 Respiratory Rate 16 18 18 Blood Pressure 135/89 Blood Pressure [Left Arm] 166/91 O2 Sat by Pulse Oximetry 97 97 Oxygen Delivery Method Room Air 02/13/25 14:48 02/13/25 15:14 02/13/25 15:15 Temperature 97.5 F L Pulse Rate 87 Pulse Rate [Brachial] Respiratory Rate 18 18 18 Blood Pressure 135/89 Blood Pressure [Left Arm] O2 Sat by Pulse Oximetry 97 Oxygen Delivery Method 02/13/25 15:45 02/13/25 16:00 02/13/25 17:36 Temperature 98.3 F Pulse Rate Pulse Rate [Brachial] 60 Respiratory Rate 18 17 19 Blood Pressure Blood Pressure [Left Arm] 157/90 O2 Sat by Pulse Oximetry 99 Oxygen Delivery Method Room Air 02/13/25 18:06 02/13/25 19:00 02/13/25 19:36 Temperature Pulse Rate Pulse Rate [Brachial] Respiratory Rate 19 17 Blood Pressure Blood Pressure [Left Arm] O2 Sat by Pulse Oximetry Oxygen Delivery Method Room Air 02/13/25 20:00 02/13/25 20:00 02/13/25 20:06 Temperature 98.0 F 98.0 F Pulse Rate Pulse Rate [Brachial] 63 63 Respiratory Rate 17 17 18 Blood Pressure Blood Pressure [Left Arm] 148/78 148/78 O2 Sat by Pulse Oximetry 97 97 Oxygen Delivery Method Room Air Room Air 02/13/25 22:50 02/13/25 23:50 02/14/25 00:00 Temperature 98.2 F Pulse Rate Pulse Rate [Brachial] 73 Respiratory Rate 17 18 17 Blood Pressure Blood Pressure [Left Arm] 141/81 O2 Sat by Pulse Oximetry 97 Oxygen Delivery Method Room Air 02/14/25 04:12 02/14/25 04:30 02/14/25 05:00 Temperature 97.8 F Pulse Rate Pulse Rate [Brachial] 79 Respiratory Rate 17 22 18 Blood Pressure Blood Pressure [Left Arm] 158/96 O2 Sat by Pulse Oximetry 98 Oxygen Delivery Method Room Air 02/14/25 08:28 02/14/25 08:32 02/14/25 08:33 Temperature 98.3 F Pulse Rate Pulse Rate [Brachial] 102 H Respiratory Rate 18 20 Blood Pressure Blood Pressure [Left Arm] 145/78 O2 Sat by Pulse Oximetry 98 Oxygen Delivery Method Room Air Room Air 02/14/25 08:58 02/14/25 10:16 02/14/25 13:11 Temperature 98.3 F 98.5 F Pulse Rate 102 H Pulse Rate [Brachial] 97 H Respiratory Rate 18 20 19 Blood Pressure 145/78 Blood Pressure [Left Arm] 140/80 O2 Sat by Pulse Oximetry 98 98 Oxygen Delivery Method Room Air 02/14/25 13:58 02/14/25 14:28 02/14/25 16:11 Temperature 98.1 F Pulse Rate Pulse Rate [Brachial] 94 H Respiratory Rate 19 19 18 Blood Pressure Blood Pressure [Left Arm] 139/79 O2 Sat by Pulse Oximetry 99 Oxygen Delivery Method Room Air 02/14/25 17:55 02/14/25 18:35 02/14/25 19:00 Temperature Pulse Rate Pulse Rate [Brachial] Respiratory Rate 18 18 Blood Pressure Blood Pressure [Left Arm] O2 Sat by Pulse Oximetry Oxygen Delivery Method Room Air 02/14/25 20:00 02/14/25 20:30 02/14/25 20:51 Temperature 98.2 F Pulse Rate Pulse Rate [Brachial] 63 Respiratory Rate 20 18 Blood Pressure Blood Pressure [Left Arm] 154/102 150/92 O2 Sat by Pulse Oximetry 98 Oxygen Delivery Method Room Air 02/14/25 21:21 02/14/25 21:43 02/14/25 22:43 Temperature Pulse Rate Pulse Rate [Brachial] Respiratory Rate 18 18 18 Blood Pressure Blood Pressure [Left Arm] O2 Sat by Pulse Oximetry Oxygen Delivery Method 02/14/25 23:27 02/14/25 23:57 02/15/25 00:00 Temperature 97.8 F Pulse Rate Pulse Rate [Brachial] 60 Respiratory Rate 18 18 19 Blood Pressure Blood Pressure [Left Arm] 149/85 O2 Sat by Pulse Oximetry 97 Oxygen Delivery Method Room Air 02/15/25 03:03 02/15/25 03:33 02/15/25 03:43 Temperature 97.9 F Pulse Rate Pulse Rate [Brachial] 59 L Respiratory Rate 19 18 20 Blood Pressure Blood Pressure [Left Arm] 159/93 O2 Sat by Pulse Oximetry 98 Oxygen Delivery Method Room Air 02/15/25 05:14 02/15/25 06:14 02/15/25 07:00 Temperature Pulse Rate Pulse Rate [Brachial] Respiratory Rate 20 18 Blood Pressure Blood Pressure [Left Arm] O2 Sat by Pulse Oximetry Oxygen Delivery Method Room Air 02/15/25 07:39 02/15/25 08:19 02/15/25 08:49 Temperature 97.6 F Pulse Rate Pulse Rate [Brachial] 73 Respiratory Rate 18 18 18 Blood Pressure Blood Pressure [Left Arm] 130/87 O2 Sat by Pulse Oximetry 97 Oxygen Delivery Method Room Air 02/15/25 10:46 Temperature Pulse Rate Pulse Rate [Brachial] Respiratory Rate 18 Blood Pressure Blood Pressure [Left Arm] O2 Sat by Pulse Oximetry Oxygen Delivery Method Labs: Laboratory Last Values WBC 16.0 X10^3/uL (3.6-10.0) H 02/15/25 05:12 RBC 5.24 X10^6/uL (4.7-6.0) 02/15/25 05:12 Hgb 12.5 g/dL (13.5-18.0) L 02/15/25 05:12 Hct 38.7 % (42.0-54.0) L 02/15/25 05:12 MCV 73.8 fL (80.0-100.0) L 02/15/25 05:12 MCH 23.8 pg (27.0-34.0) L 02/15/25 05:12 MCHC 32.3 g/dL (33.0-35.0) L 02/15/25 05:12 RDW 16.4 % (11.6-16.5) 02/15/25 05:12 Plt Count 204 X10^3/uL (150.0-450.0) 02/15/25 05:12 Plt Count Comment Adequate (ADEQUATE) 02/15/25 05:12 MPV 10.0 fL (7.4-11.0) 02/15/25 05:12 Neut % (Auto) 72.0 % (42.0-75.0) 02/15/25 05:12 Lymph % (Auto) 15.1 % (21.0-51.0) L 02/15/25 05:12 Wallace % (Auto) 12.6 % (0.0-13.0) 02/15/25 05:12 Eos % (Auto) 0.2 % (0.9-2.9) L 02/15/25 05:12 Baso % (Auto) 0.1 % (0.2-1.0) L 02/15/25 05:12 Neut # (Auto) 11.5 x10^3/uL (2.2-4.8) H 02/15/25 05:12 Lymph # (Auto) 2.4 X10^3/uL (1.3-2.9) 02/15/25 05:12 Wallace # (Auto) 2.0 x10^3/uL (0.3-0.8) H 02/15/25 05:12 Eos # (Auto) 0.0 x10^3/uL (0.0-0.2) 02/15/25 05:12 Baso # (Auto) 0.0 X10^3/uL (0.0-0.1) 02/15/25 05:12 Absolute Nucleated RBC 0.1 /100WBC 02/15/25 05:12 Total Counted 100 02/13/25 04:36 Neutrophils % (Manual) 87 % (39-76) H 02/13/25 04:36 Lymphocytes % (Manual) 11 % (13-43) L 02/13/25 04:36 Monocytes % (Manual) 2 % (4-9) L 02/13/25 04:36 Plt Morphology Comment Normal (NORMAL) 02/15/25 05:12 RBC Morphology Abnormal (NORMAL) 02/15/25 05:12 Hypochromasia 1+ A 02/15/25 05:12 Anisocytosis Slight A 02/10/25 04:09 Microcytosis Slight A 02/15/25 05:12 Target Cells Slight A 02/15/25 05:12 Sodium 142 mmol/L (136-145) 02/15/25 05:12 Corrected Sodium TNP 02/15/25 05:12 Potassium 3.2 mmol/L (3.5-5.1) L 02/15/25 05:12 Chloride 103 mmol/L (98-107) 02/15/25 05:12 Carbon Dioxide 30.9 mmol/L (21-32) 02/15/25 05:12 BUN 12 mg/dL (7-18) 02/15/25 05:12 Creatinine 0.98 mg/dL (0.70-1.30) 02/15/25 05:12 Est GFR (MDRD) Af Amer > 60 (>60) 02/15/25 05:12 Est GFR (MDRD) Non-Af > 60 (>60) 02/15/25 05:12 Glucose 86 mg/dL (65-99) 02/15/25 05:12 Calcium 8.9 mg/dL (8.5-10.1) 02/15/25 05:12 Corrected Calcium 9.7 mg/dL (8.5-10.1) 02/15/25 05:12 Magnesium 2.1 mg/dL (2.0-2.9) 02/15/25 05:12 Total Bilirubin 0.30 mg/dL (0.2-1.0) 02/15/25 05:12 AST 34 Units/L (15-37) 02/15/25 05:12 ALT 97 Units/L (12-78) H 02/15/25 05:12 Alkaline Phosphatase 61 Units/L (46-116) 02/15/25 05:12 Total Protein 6.4 g/dL (6.4-8.2) 02/15/25 05:12 Albumin 3.0 g/dL (3.4-5.0) L 02/15/25 05:12 Globulin 3.4 g/dL (2.5-4.5) 02/15/25 05:12 Albumin/Globulin Ratio 0.9 Ratio (1.1-2.1) L 02/15/25 05:12 Specimen Type Clean catch urine 02/10/25 02:52 Urine Color Yellow (YELLOW) 02/10/25 02:52 Urine Appearance Clear (CLEAR) 02/10/25 02:52 Urine pH 6.0 (5.0 - 8.0) 02/10/25 02:52 Ur Specific Nelson 1.005 (1.000-1.030) 02/10/25 02:52 Urine Protein 2+ (NEGATIVE) 02/10/25 02:52 Urine Glucose (UA) Negative (NEGATIVE) 02/10/25 02:52 Urine Ketones Negative (NEGATIVE) 02/10/25 02:52 Urine Blood Negative (NEGATIVE) 02/10/25 02:52 Urine Nitrite Negative (NEGATIVE) 02/10/25 02:52 Urine Bilirubin Negative (NEGATIVE) 02/10/25 02:52 Urine Urobilinogen Normal (NORMAL) 02/10/25 02:52 Ur Leukocyte Esterase Negative (NEGATIVE) 02/10/25 02:52 Urine RBC None seen /HPF (0-3) 02/10/25 02:52 Urine WBC None seen /HPF (0-5) 02/10/25 02:52 Ur Squamous Epith Cells Negative /HPF (NEGATIVE) 02/10/25 02:52 Urine Bacteria Negative /HPF (NEGATIVE) 02/10/25 02:52 Ur Culture Indicated? No/not indicated 02/10/25 02:52 Reason For Visit: CROHN'S COLITIS, SBO Discharge Date Discharge Date: 02/15/25 Discharge Diagnosis All Active Problems (Updated 02/09/25 @ 22:40 by Debbie Pickett) Crohn's disease (Acute) Fecal impaction in rectum (Acute) Acute hypotension (Acute) Abdominal pain (Acute) SBO (small bowel obstruction) (Acute) Exacerbation of Crohn's disease of small intestine (Acute) Plan of Treatment: Continue with present treatment and follow up plan. Pt is to keep follow up appointment as instructed and take medications as ordered. Discharge Medications Discharge Medications: ketorolac (From Toradol) Allergy (Verified 02/09/25 19:41) CONTINUE taking the following medications NK 02/09/25 [History] see below Discharge Disposition Assessment: see hospital course Discharge Plan Discharge Plan Hospital Course: This is a 40-year-old male with history of Crohn's disease who had resection of his terminal ileum and cecum in 2005 laparoscopically. He has not had regular follow-up or medications due to lack of insurance. He presented to the emergency room complaining of abdominal pain and CT scan showed evidence of possible closed-loop obstruction of the small bowel in the right lower quadrant with inflammation of the descending colon. Patient was placed on IV steroids and IV antibiotics. His pain did improve. CT scan also showed a large rectal fecal impaction which resolved with the patient having enemas and self disimpaction. He improved and although the films still showed dilated loops of small bowel clinically he never had bowel obstruction. He was not distended, not vomiting and having good bowel movements. He was seen in consultation by Dr. Delong , gastroenterology ,who had seen him in the past and agreed with our care. He recommended he be discharged home on tapering dose of prednisone and p.o. antibiotics. He was started on a clear liquid diet and then regular diet. He did have 1 day where he felt a little distended but that resolved and now he is tolerating regular diet having good bowel movements with no nausea or vomiting. He is to be discharged home on a tapering dose of prednisone starting at 40 mg. He also will be on p.o. Cipro and p.o. Flagyl. He will follow-up me in 1 week. He also had follow-up with Dr. Delong . There is still a possibility he may require operative intervention because of the findings of the small bowel. Patient Disposition: 01 HOME, SELF-CARE Condition: Stable Health Concerns: Post Hospitalization: new medications and changes needed to prevent readmission or further decline. Pt educated and given instructions on all concerns. Care Plan Goals: Problem: Pain/Alteration in Comfort Goal: Improve/ Resolve Pain; Achieve Pain Tolerance Instructions: Take pain medications as prescribed. Contact your primary care provider if your pain is unrelieved or worsens. Follow up with primary care provider as directed. Plan of Treatment: Continue with present treatment and follow up plan. Pt is to keep follow up appointment as instructed and take medications as ordered. Assessment: see hospital course Prescription drug monitoring program results: PDMP was not reviewed Prescriptions: New tramadol 50 mg tablet 50 mg PO Q8H MDD 4 PRNQty: 30 0RF prednisone 20 mg tablet 40 mg PO QDAY Qty: 15 0RF Rx Instructions: 2 tabs daily for 4 days, 1 tab daily for 4 days. One half tab daily for 4 da ys metronidazole 500 mg tablet 500 mg PO Q8H 7 Days Qty: 30 0RF ciprofloxacin HCl [Cipro] 500 mg tablet 500 mg PO BID Qty: 20 0RF Follow ups/Referrals Follow ups/Referrals: SHALONDA DELONG [STAFF PHYSICIAN, Surgical] - 02/26/25 3:00 pm ROB ORTIZ [Primary Care Provider] Instructions Instructions: Small Bowel Obstruction, Fecal Impaction, Crohn's Disease Stand Alone Forms: Excuse From Work or School, Find Help Web Site, Post Hospital Follow Up Care Print Language: BENGALI
[2025-02-15 16:14] VITALS: RESP 18
--- NOTE | 2025-02-15 18:44 | NOTE.SOAP ---
Soap Note Note for Day of Date of Exam: 02/15/25 Subjective Data Subjective Data: Patient seen by me this morning with no complaint. I plan to discharge but later he complained of abdominal pain which is now resolved. Tolerating a diet. No nausea no vomiting and having bowel movements. I counseled the discharge. Objective Data Temperature: 97.7 F Pulse Rate: 78 Respiratory Rate: 18 Blood Pressure: 138/87 O2 Sat by Pulse Oximetry: 97 Objective Data: Abdomen soft and benign. Tolerating diet Assessment Assessment: Recurrent Crohn's disease, Plan Plan: Will observe tonight. Discharge home in a.m. on tapering prednisone and antibiotics. Plan follow-up with Dr. Spear and myself
[2025-02-16 05:04] LABS: MEAN PLATELET VOLUME 9.4 fL (7.4-11.0); RED CELL DISTRIBUTION WIDTH 16.7 % (11.6-16.5)
[2025-02-16 05:20] LABS: COR CA(FOR HYPOALB) 9.5 mg/dL (8.5-10.1); CREATININE 0.99 mg/dL (0.70-1.30); eGFR NON BLACK RACES > 60 (>60)
[2025-02-16 05:31] LABS: PLATELET MORPHOLOGY COMMENT NORMAL (NORMAL)
[2025-02-16] MEDS: CONSULT PHARMACY - POTASSIUM & MAGNESIUM XX SCH (05:41)
[2025-02-16 08:02] VITALS: BP 131/81; PULSE 67; TEMP 98.2; O2SAT 98
[2025-02-16] MEDS: K-DUR TAB 20 MEQ PO SCH (08:14)
== END 2025-02-16 11:20 | disposition home or self-care (01) | DRG 386 ==
LOC: ER 19:34 → MED/SURG 19:34
PROVIDERS: ADMIT Surgery; ATTEND Surgery
DX: R73.09 Other abnormal glucose; D64.89 Other specified anemias; D72.828 Other elevated white blood cell count; R79.89 Other specified abnormal findings of blood chemistry; I95.89 Other hypotension; Z90.49 Acquired absence of other specified parts of digestive tract; K50.912 Crohn's disease, unspecified, with intestinal obstruction; K56.41 Fecal impaction; K56.699 Other intestinal obstruction unspecified as to partial versus complete obstruction; R10.84 Generalized abdominal pain